=== PATIENT | male | born 1995 | race Caucasian/White ===

== ENCOUNTER → 2020-05-08 19:12 | Outpatient (ROUT) | payer OTHER, SELFPAY ==
[2020-05-08 19:23] LABS: Add Manual Diff / Slide Review NO; Basophils Absolute Auto 0 /uL (0-100); Basophils Percent Auto 0.7 % (0-2); Eosinophils Absolute Auto 200 /uL (0-450); Eosinophils Percent Auto 5.7 % (2-4); Hematocrit 44.1 % (41-53); Hemoglobin 15.5 g/dL (13.5-17.5); Lymphocytes Absolute Auto 1500 /uL (1100-4500); Lymphocytes Percent Auto 34.8 % (25-40); Mean Corpuscular HGB Conc 35.2 % (30-36); Mean Corpuscular Hemoglobin 32.5 PG (26-34); Mean Corpuscular Volume 92.5 fL (80-100); Monocytes Absolute Auto 400 /uL (0-900); Monocytes Percent Auto 8.3 % (3-14); Neutrophils Absolute Auto 2200 /uL (1500-7000); Neutrophils Percent Auto 50.5 % (50-75); Platelet Count 286 X10^3/uL (150-400); Red Blood Cell Count 4.77 X10^6/uL (4.5-5.9); Red Cell Distribution Width 11.8 % (11.6-14.8); White Blood Cell Count 4.3 X10^3/uL (4.5-11.0)
[2020-05-08 19:40] LABS: Alanine Aminotransferase 24 IU/L (<50); Albumin Globulin Ratio 1.5 (1.0-2.8); Alkaline Phosphatase 65 U/L (38-126); Aspartate Aminotransferase 31 IU/L (17-59); BUN Creatinine Ratio 13.3 (6-22); Bilirubin Total 0.9 mg/dL (0.2-1.3); Blood Urea Nitrogen 12 mg/dL (9-20); Calcium 10.2 mg/dL (8.4-10.2); Carbon Dioxide 25 mmol/L (22-32); Chloride 103 mmol/L (98-107); Estimated Glomerular Filt Rate > 60.0 mL/min (>60); Globulin 3.4 g/dL (1.7-4.1); Glucose 88 mg/dL (70-100); HEMOLYSIS 43 (0-50); Potassium 4.5 mmol/L (3.4-5.1); Sodium 137 mmol/L (137-145); Total Protein 8.4 g/dL (6.3-8.2)
[2020-05-08 20:09] LABS: TSH w/ Reflex to FT4 2.15 uIU/mL (0.47-4.68)
== END ==
PROVIDERS: Visit Provider Physician Assistant
DX: F41.9 Anxiety disorder, unspecified (principal); R00.2 Palpitations; R68.89 Other general symptoms and signs
CPT/HCPCS: 80053; 84443; 85025

== ENCOUNTER 2020-09-04 01:43 | Emergency (ER) | payer OTHER, SELFPAY ==
[2020-09-04 01:51] VITALS: BP 114/62; PULSE 67; RESP 17; TEMP 37; O2SAT 98; BMI 19.2
--- NOTE | 2020-09-04 01:52 | DI.RAD.S_ITS ---
PROCEDURE: XR CHEST 2V INDICATIONS: sharp stabbing chest pain TECHNIQUE: 2 views of the chest were acquired. COMPARISON: None. FINDINGS: Surgical changes and devices: None. Lungs and pleura: Lungs are clear. No pleural effusions or pneumothorax. Mediastinum: Mediastinal contours are normal. Heart size is normal. Bones and chest wall: No suspicious bony abnormalities. Soft tissues appear unremarkable. IMPRESSION: No acute disease. Dictated by: Mika Duvall M.D. on 09/04/2020 at 8:16 Approved by: Mika Duvall M.D. on 09/04/2020 at 8:17
--- NOTE | 2020-09-04 02:34 | ED_ITS ---
HPI - Chest Pain General Chief Complaint: Chest Pain Stated Complaint: hurts to breath Time Seen by Provider: 09/04/20 01:44 Source: patient Mode of arrival: Ambulatory Limitations: no limitations History of Present Illness HPI narrative: 25-year-old male smoker without chronic medical problems presents with a chief complaint of sharp and stabbing left anterior chest pain that wraps around his back. It is reproducible to palpation and deep breath. He denies any known injury or overuse. He has had no runny nose, sneezing, coughing. He denies any shortness of breath. Related Data Previous Rx's Medication Instructions Recorded ketorolac 10 mg PO Q6H PRN #14 tab 09/04/20 Allergies Allergy/AdvReac Type Severity Reaction Status Date / Time morphine Allergy Verified 09/04/20 01:51 Review of Systems Constitutional Constitutional: Denies chills, Denies fatigue, Denies fever(s), Denies frequent falls, Denies lethargy and Denies weakness Eyes Eyes: Denies change in vision, Denies eye discharge, Denies irritation and Denies loss of vision ENT Ears, Nose, Mouth, and Throat: Denies change in voice, Denies dizziness, Denies neck pain, Denies sore throat and Denies throat swelling Cardiovascular Cardiovascular: Reports chest pain, Denies irregular heart rhythm, Denies lightheadedness, Denies palpitations, Denies dyspnea, Denies dyspnea on exertion and Denies orthopnea Respiratory Respiratory: Denies cough, Reports pain on inspiration, Reports pain with cough, Denies dyspnea, Denies dyspnea on exertion and Denies wheezing Gastrointestinal Gastrointestinal: Denies abdominal pain, Denies change in bowel habits, Denies diarrhea, Denies nausea and Denies vomiting Musculoskeletal Musculoskeletal: Denies neck pain and Denies numbness Integumentary/Breasts Skin/Breast: Denies pruritus, Denies erythema, Denies rash and Denies wounds Neurologic Neurologic: Denies behavioral changes, Denies confusion, Denies dizziness, Denies frequent falls, Denies loss of vision, Denies numbness and Denies weakness Psychiatric Psychiatric: Denies anxiety, Denies behavioral changes, Denies confusion, Denies depression, Denies homicidal ideation and Denies suicidal ideation Endocrine Endocrine: Denies fatigue, Denies flushing and Denies palpitations Hematologic/Lymphatic Hematologic/Lymphatic: Denies easy bruising Allergic/Immunologic Allergic/Immunologic: Denies urticaria, Denies throat swelling and Denies wheezing Patient History Social History Smoking Status: Current every day smoker Smoking Status: Current every day smoker alcohol intake frequency: 0-2 drinks per day Substance Use Type: does not use Exam Narrative Exam Narrative: GENERAL: [25] year old patient appears stated age. Well- nourished, well-developed patient, in mild distress. Anxious HEAD: Atraumatic. Normocephalic. EYES: Pupils equal round and reactive. Extraocular motions intact. No scleral icterus. No injection or drainage. ENT: Nose without bleeding, purulent drainage. Throat without erythema, tonsillar hypertrophy or exudate. Airway patent. NECK: Trachea midline. Non tender CARDIOVASCULAR: Left anterior chest pain to palpation. Regular rate and rhythm without murmurs, gallops, or rubs. RESPIRATORY: Clear to auscultation. Breath sounds equal bilaterally. No wheezes, rales, or rhonchi. GASTROINTESTINAL: Abdomen soft, non-tender, nondistended. EXTREMITIES: No edema or joint tenderness. BACK: Nontender without deformity or crepitance. No flank tenderness. NEURO: AOx3. SKIN: No rash or erythema of visible areas Initial Vital Signs Initial Vital Signs: Vital Signs Temperature 98.6 F 09/04/20 01:51 Pulse Rate 67 09/04/20 01:51 Respiratory Rate 17 09/04/20 01:51 Blood Pressure 114/62 09/04/20 01:51 Pulse Oximetry 98 09/04/20 01:51 Course Orders Ordered: ED Orders 09/04/20 01:52 XR chest 2V Stat EKG-12 Lead Stat Discontinued Medications Ketorolac Tromethamine (Ketorolac 60 Mg/2 Ml Vial) 60 mg IM NOW ONE Stop: 09/04/20 02:35 Last Admin: 09/04/20 03:05 Dose: 60 mg Documented by: RENÉ Vital Signs Vital signs: Vital Signs - 8 hr 09/04/20 01:51 09/04/20 03:25 Temperature 98.6 F Pulse Rate 67 64 Respiratory Rate 17 18 Blood Pressure 114/62 120/66 Pulse Oximetry 98 99 MDM - Chest Pain Imaging Data Chest x-ray: Attestation: I personally reviewed and interpreted this imaging study as follows: My Impression: NAP ECG Data Attestation: I personally reviewed and interpreted this ECG as follows: Interpretation: Normal sinus rhythm, no sign of ectopy, no ST segmental elevation or depression. No T-wave inversions or Discharge Plan Departure Patient Disposition: Home Clinical Impression: Atypical chest pain Instructions: DI for Atypical Chest Pain Activity Restrictions/Additional Instructions: *You have been diagnosed with [chest wall pain, most likely musculoskeletal] *What to do: *Take medications as directed *Follow up with your primary care provider in 2-3 days, call for an appointment. Let them know you were seen in the Emergency Department and that we ask that you be seen in follow up *Return to ER if you should have any new, worsening or concerning symptoms Prescriptions: New ketorolac 10 mg tablet 10 mg PO Q6H PRN (Reason: pain) Qty: 14 RF: 0
[2020-09-04] MEDS: KETOROLAC 60 MG/2 ML VIAL IM (03:05)
[2020-09-04 03:25] VITALS: BP 120/66; PULSE 64; RESP 18; O2SAT 99
== END 2020-09-04 03:25 | disposition home or self-care (01) ==
PROVIDERS: Emergency Provider Emergency Medicine
DX: R07.89 Other chest pain (principal)
CPT/HCPCS: 71046; 93005; 96372; 99281; 99284; J1885

== ENCOUNTER 2021-03-07 03:05 | Emergency (ER) | payer OTHER, SELFPAY ==
--- NOTE | 2021-03-07 03:11 | ED.GENADULT ---
HPI - General Adult General Chief complaint: Nausea/Vomiting/Diarrhea Stated complaint: Throwing up blood after drinking alcohol Time Seen by Provider: 03/07/21 03:06 History of Present Illness HPI narrative: Patient is a 25-year-old male he does admit to drinking alcohol on a daily basis. He states that yesterday he was fired from his job and trach yesterday afternoon. He states that he then went and slept for a while and when he woke up he had a headache. He thinks that he did drink more yesterday afternoon than what he normally does. He then proceeded to throw up 3 times. The 1st 2 were bile and alcohol in the 3rd episode of emesis had a maroon tinge to it. He denies any chest pain. No shortness of breath. No abdominal pain. He states that his nausea is still slightly there but is much better. He did not take his anxiety medication yesterday because he knew that he was going to drink and did not want to combine the 2. He then looked up his symptoms on the Internet and became very anxious decided to come in for evaluation. Related Data Previous Rx's Medication Instructions Recorded ketorolac 10 mg tablet 10 mg PO Q6H PRN #14 tab 09/04/20 Allergies Allergy/AdvReac Type Severity Reaction Status Date / Time morphine Allergy Verified 09/04/20 01:51 Review of Systems Constitutional Constitutional: Denies fever(s) Cardiovascular Cardiovascular: Reports system reviewed and no additional complaints, except as documented Respiratory Respiratory: Reports system reviewed and no additional complaints, except as documented Gastrointestinal Gastrointestinal: Reports as per HPI Musculoskeletal Musculoskeletal: Reports system reviewed and no additional complaints, except as documented Integumentary/Breasts Skin/Breast: Reports system reviewed and no additional complaints, except as documented Hematologic/Lymphatic On Anticoagulants: No Patient History Medical History Anxiety Social History Smoking Status: Current every day smoker Smoking Status: Current every day smoker alcohol intake frequency: 0-2 drinks per day Substance Use Type: does not use Exam Initial Vital Signs Initial Vital Signs: Vital Signs Temperature 98 F 03/07/21 03:13 Pulse Rate 100 H 03/07/21 03:13 Respiratory Rate 15 03/07/21 03:13 Blood Pressure 134/94 H 03/07/21 03:13 Pulse Oximetry 100 03/07/21 03:13 Const General: cooperative and healthy appearing PEARL Head: normal to inspection and normocephalic Resp Effort & Inspection: normal respiratory effort Auscultation: clear to auscultation bilaterally Cardio Rate: regular rate Rhythm: regular rhythm GI Inspection: normal to inspection Palpation: soft Skin General: no rashes or lesions noted Neuro General: patient alert and patient awake Extrem General: normal to inspection Psych Appearance: grossly normal and well kempt Course Orders Ordered: Discontinued Medications Ondansetron HCl (Ondansetron 4 Mg Odt Prepack) 1 bottle MISC SEEINSTR ONE Stop: 03/07/21 03:20 Vital Signs Vital signs: Vital Signs - 8 hr 03/07/21 03:13 Temperature 98 F Pulse Rate 100 H Respiratory Rate 15 Blood Pressure 134/94 H Pulse Oximetry 100 Medical Decision Making MDM Narrative Medical decision making narrative: I have very low suspicion for an acute GI bleed given his presentation. I also have low suspicion for pulmonary embolism. I do suspect that this is either a alcoholic gastritis or Klaudia-Franklin tear or both. Did discuss his alcohol use and he was informed that he should try to cut back on his alcohol. We did discuss the use of anti reflux/stomach ulcer medications. Will send home with a prescription for Zofran. He was given return precautions and follow-up instructions. He expressed understanding and agreement. Discharge Plan Departure Patient Disposition: Home Clinical Impression: Acute vomiting Instructions: DI for Vomiting -- Adult Activity Restrictions/Additional Instructions: I recommend that you consider cutting back on the amount of alcohol that you are drinking as this very well could be adding to the issues that brought you into the emergency department. Also recommend that you consider purchasing a medicine called famotidine/Pepcid. This medicine can be purchased [id number] any drug store or grocery store. They recommend that you take it on a daily basis for the next 7 days and then as needed afterwards. Return to the emergency department for any new or worsening symptoms Prescriptions: No Action ketorolac 10 mg tablet 10 mg PO Q6H PRN (Reason: pain) Qty: 14 RF: 0
[2021-03-07 03:13] VITALS: BP 134/94; PULSE 100; RESP 15; TEMP 36.6; O2SAT 100; BMI 20.5
[2021-03-07] MEDS: ONDANSETRON 4 MG ODT PREPACK 1 BOTTLE MISC (03:24)
== END 2021-03-07 03:35 | disposition home or self-care (01) ==
PROVIDERS: Emergency Provider Emergency Medicine
DX: R11.10 Vomiting, unspecified (principal); F10.10 Alcohol abuse, uncomplicated
CPT/HCPCS: 99281; 99282

== ENCOUNTER 2021-04-23 23:57 | Emergency (ER) | payer SELFPAY ==
[2021-04-24] VITALS (9 sets, daily range): BP systolic 117–136; BP diastolic 73–88; PULSE 81–116; RESP 14–28; TEMP 37.1; O2SAT 94–98; BMI 19.9
--- NOTE | 2021-04-24 00:34 | ED_ITS ---
HPI - Nausea/Vomiting/Diarrhea General Chief complaint: GI Bleed Stated complaint: cough blood,bruise on stomach,alcohol,depression Time Seen by Provider: 04/24/21 00:00 History of Present Illness HPI Narrative: 25-year-old male smoker and heavy daily drinker presents with a chief complaint of 1 episode of vomiting yesterday, and a 2nd episode of vomiting today with bright red blood. He says yesterday there may have been some coffee-ground type appearance. He states that he drinks at least 12 shots and 12 beers daily. He has been alcohol rehab previously and states that he has had alcohol withdrawal symptoms but never seizures. He is not dizzy nor weak or lightheaded. Denies any pain. He denies the use of blood thinners. He denies any history of the same. Related Data Previous Rx's Medication Instructions Recorded ketorolac 10 mg tablet 10 mg PO Q6H PRN #14 tab 09/04/20 pantoprazole 40 mg tablet,delayed 40 mg PO DAILY #30 tab 04/24/21 release (Protonix) Allergies Allergy/AdvReac Type Severity Reaction Status Date / Time morphine Allergy Verified 09/04/20 01:51 Review of Systems Review of Systems Narrative: GENERAL: Denies chills, fatigue, malaise, fever, sweats. HEENT: Denies sinus pain, ear pain, sore throat, difficulty swallowing, dizziness. RESPIRATORY: Denies dyspnea, cough, wheezing, hemoptysis, sputum. CARDIOVASCULAR: Denies chest pain, palpitations, orthopnea, edema, GASTROINTESTINAL: See HPI : Denies dysuria, frequency, incontinence, hematuria, urinary retention. MUSCULOSKELETAL: denies weakness, joint pain, or bony pain SKIN: Denies rash, skin lesions, or other NEUROLOGIC: Denies weakness, headache, numbness, change in speech, confusion, seizures, incoordination. PSYCHIATRIC: No concerning psychosocial issues. 12 point review of systems is negative except for those stated above Patient History Medical History Anxiety Social History Smoking Status: Current every day smoker Smoking Status: Current every day smoker alcohol intake frequency: 3 or more drinks per day Substance Use Type: does not use Exam Narrative Exam Narrative: GENERAL: [25] year old patient appears stated age. Well- developed patient, in mild distress. A bit anxious HEAD: Atraumatic. Normocephalic. EYES: Pupils equal round and reactive. Extraocular motions intact. No scleral icterus. No injection or drainage. ENT: Nose without bleeding, purulent drainage. Throat without erythema, tonsillar hypertrophy or exudate. Airway patent. NECK: Trachea midline. Non tender CARDIOVASCULAR: Tachycardic but regular rhythm without murmurs, gallops, or rubs. RESPIRATORY: Clear to auscultation. Breath sounds equal bilaterally. No wheezes, rales, or rhonchi. GASTROINTESTINAL: Abdomen soft, non-tender, nondistended. EXTREMITIES: No edema or joint tenderness. BACK: Nontender without deformity or crepitance. No flank tenderness. NEURO: AOx3. SKIN: No rash or erythema of visible areas Initial Vital Signs Initial Vital Signs: Vital Signs Temperature 98.7 F 04/24/21 00:41 Pulse Rate 116 H 04/24/21 00:41 Respiratory Rate 24 04/24/21 00:41 Blood Pressure 136/88 04/24/21 00:41 Pulse Oximetry 98 04/24/21 00:41 Course Orders Ordered: ED Orders 04/24/21 00:23 COVID19 - ADMIT ([employer] swab/PCR) Stat 04/24/21 00:40 Complete Blood Count AUTO DIFF Stat Comprehensive Metabolic Panel Stat Ethanol (ETOH) Stat Lactate (Lactic Acid) Stat Lipase Stat Prothrombin Time INR Stat 04/24/21 03:13 Urine Microscopic Stat 04/24/21 03:39 Urine Drug Screen, Rapid Stat Discontinued Medications Lorazepam (Lorazepam 2 Mg/Ml Inj) 1 mg IV NOW ONE Stop: 04/24/21 01:27 Last Admin: 04/24/21 01:40 Dose: 1 mg Documented by: CITLALI Ondansetron HCl (Ondansetron 4 Mg/2 Ml Inj) 4 mg IV NOW ONE Stop: 04/24/21 00:23 Last Admin: 04/24/21 01:12 Dose: 4 mg Documented by: CITLALI Pantoprazole Sodium (Pantoprazole 40 Mg Vial) 80 mg IV NOW ONE Stop: 04/24/21 00:23 Last Admin: 04/24/21 01:11 Dose: 80 mg Documented by: CITLALI Vital Signs Vital signs: Vital Signs - 8 hr 04/24/21 00:41 04/24/21 00:52 04/24/21 01:00 Temperature 98.7 F Pulse Rate 116 H 100 H 102 H Respiratory Rate 24 24 27 H Blood Pressure 136/88 117/80 Pulse Oximetry 98 97 96 04/24/21 01:30 04/24/21 02:00 04/24/21 02:30 Temperature Pulse Rate 94 H 92 H 88 Respiratory Rate 27 H 23 14 Blood Pressure 124/73 131/86 132/83 Pulse Oximetry 96 98 94 04/24/21 03:04 04/24/21 03:30 04/24/21 04:00 Temperature Pulse Rate 85 86 81 Respiratory Rate 21 28 H Blood Pressure 133/80 Pulse Oximetry 98 94 96 MDM - Nausea/Vomiting/Diarrhea Lab Data Result diagrams: 04/24/21 00:40 04/24/21 00:40 Labs: Lab Results 04/24/21 04/24/21 04/24/21 Range/Units 00:40 00:40 00:40 WBC 6.3 (4.5-11.0) X10^3/uL RBC 4.74 (4.5-5.9) X10^6/uL Hgb 15.5 (13.5-17.5) g/dL Hct 45.4 (41-53) % MCV 95.8 (80-100) fL MCH 32.8 (26-34) PG MCHC 34.3 (30-36) % RDW 12.4 (11.6-14.8) % Plt Count 338 (150-400) X10^3/uL Neut % (Auto) 47.7 L (50-75) % Lymph % (Auto) 40.5 H (25-40) % [place] % (Auto) 7.4 (3-14) % Eos % (Auto) 3.4 (2-4) % Baso % (Auto) 1.0 (0-2) % Neut # (Auto) 3000 (8347-6874) /uL Lymph # (Auto) 2600 (8446-9873) /uL [place] # (Auto) 500 (0-900) /uL Eos # (Auto) 200 (0-450) /uL Baso # (Auto) 100 (0-100) /uL PT 10.9 (10.1-12.7) SECONDS INR 1.0 (0.9-1.3) Sodium (137-145) mmol/L Potassium (3.4-5.1) mmol/L Chloride (98-107) mmol/L Carbon Dioxide (22-32) mmol/L BUN (9-20) mg/dL Creatinine (0.66-1.25) mg/dL Estimated GFR (>60) mL/min BUN/Creatinine Ratio (6-22) Glucose (70-100) mg/dL Lactate (0.7-2.1) mmol/L Calcium (8.4-10.2) mg/dL Total Bilirubin (0.2-1.3) mg/dL AST (17-59) IU/L ALT (<50) IU/L Alkaline Phosphatase (38-126) U/L Total Protein (6.3-8.2) g/dL Albumin (3.5-5.0) g/dL Globulin (1.7-4.1) g/dL Albumin/Globulin Ratio (1.0-2.8) Lipase (23-300) U/L Urine RBC (0-5/HPF) Urine WBC (0-5/HPF) Urine Bacteria (None) Ur Culture Indicated? Ethyl Alcohol 325 H ( - 10) mg/dL 04/24/21 04/24/21 04/24/21 Range/Units 00:40 00:40 03:13 WBC (4.5-11.0) X10^3/uL RBC (4.5-5.9) X10^6/uL Hgb (13.5-17.5) g/dL Hct (41-53) % MCV (80-100) fL MCH (26-34) PG MCHC (30-36) % RDW (11.6-14.8) % Plt Count (150-400) X10^3/uL Neut % (Auto) (50-75) % Lymph % (Auto) (25-40) % [place] % (Auto) (3-14) % Eos % (Auto) (2-4) % Baso % (Auto) (0-2) % Neut # (Auto) (9074-6509) /uL Lymph # (Auto) (1494-5936) /uL [place] # (Auto) (0-900) /uL Eos # (Auto) (0-450) /uL Baso # (Auto) (0-100) /uL PT (10.1-12.7) SECONDS INR (0.9-1.3) Sodium 144 (137-145) mmol/L Potassium 4.1 (3.4-5.1) mmol/L Chloride 106 (98-107) mmol/L Carbon Dioxide 24 (22-32) mmol/L BUN 12 (9-20) mg/dL Creatinine 0.96 (0.66-1.25) mg/dL Estimated GFR > 60.0 (>60) mL/min BUN/Creatinine Ratio 12.5 (6-22) Glucose 121 H (70-100) mg/dL Lactate 1.9 (0.7-2.1) mmol/L Calcium 9.3 (8.4-10.2) mg/dL Total Bilirubin 0.3 (0.2-1.3) mg/dL AST 45 (17-59) IU/L ALT 35 (<50) IU/L Alkaline Phosphatase 78 (38-126) U/L Total Protein 8.4 H (6.3-8.2) g/dL Albumin 4.9 (3.5-5.0) g/dL Globulin 3.5 (1.7-4.1) g/dL Albumin/Globulin Ratio 1.4 (1.0-2.8) Lipase 135 (23-300) U/L Urine RBC 0-1/hpf (0-5/HPF) Urine WBC None seen (0-5/HPF) Urine Bacteria None seen (None) Ur Culture Indicated? Cult not indicated Ethyl Alcohol ( - 10) mg/dL Urine Dip Bedside Urine Glucose Negative Bedside Urine Bilirubin - Negative Bedside Urine Ketone - Negative Urine Specific [place] 1.010 Bedside Urine Occult Blood +/- Bedside Urine pH 7 Bedside Urine Protein - Negative Bedside Urine Urobilinogen - Negative Bedside Urine Nitrite - Negative Bedside Urine Leukocytes - Negative Esterase MDM Narrative Medical decision making narrative: Patient reports hematemesis earlier today. He has been observed for nearly 5 hours and had no ongoing episodes. His vital signs have stabilized, he feels significant improvement. He is clinically sober, speaking clearly without slurring and ambulating a steady gait. He is demonstrating capacity to make his own decisions and understands the need to establish with local doctors. He understands that if he continues on this path of heavy drinking that it will make him significantly, chronically ill and will be, life-threatening problem. He understands that quitting without the assistance of a physician is also life-threatening. He has been given extensive return precautions and questions are answered to his apparent satisfaction Discharge Plan Departure Patient Disposition: Home Clinical Impression: Gastritis Qualifiers: Gastritis type: alcoholic Chronicity: acute Gastritis bleeding: with bleeding Qualified Code(s): K29.21 - Alcoholic gastritis with bleeding Instructions: Gastrointestinal Bleeding Activity Restrictions/Additional Instructions: *You have been diagnosed with [vomiting with blood, likely a consequence of chronic alcohol abuse and gastritis. Your vital signs are very reassuring and your labs are as well, however it is very important that you follow up closely with the doctors listed below] *What to do: *Please continue to take your regular medications as directed. [x ] New medication prescriptions sent to your pharmacy: [ [facility]] [ ] New medication written as a paper prescription [ ] No new medications given *Please follow up with your primary care provider in 2-3 days, call for an appointment. Let them know you were seen in the Emergency Department and that we ask that you be seen in follow up. We will electronically transmit a record of today's note if your PCP is in our system *If you do not have a primary care provider please contact the [facility] Resource line at [phone]. They will ask some questions about your medical history and help get you set up with a doctor in the community. *Return to Emergency Department if you should have any new, worsening or concerning symptoms, such as [fever greater than 101 F, shaking chills, worsening pain, persistent vomiting or other bothersome symptoms] Prescriptions: New pantoprazole [Protonix] 40 mg tablet,delayed release (DR/EC) 40 mg PO DAILY Qty: 30 RF: 0 No Action ketorolac 10 mg tablet 10 mg PO Q6H PRN (Reason: pain) Qty: 14 RF: 0 Referrals: [facility] [Outside] Larry Lindo MD [Physician] -
[2021-04-24 00:47] LABS: Add Manual Diff / Slide Review NO; Basophils Absolute Auto 100 /uL (0-100); Eosinophils Absolute Auto 200 /uL (0-450); Eosinophils Percent Auto 3.4 % (2-4); Hematocrit 45.4 % (41-53); Hemoglobin 15.5 g/dL (13.5-17.5); Lymphocytes Absolute Auto 2600 /uL (1100-4500); Lymphocytes Percent Auto 40.5 % (25-40); Mean Corpuscular HGB Conc 34.3 % (30-36); Mean Corpuscular Hemoglobin 32.8 PG (26-34); Mean Corpuscular Volume 95.8 fL (80-100); Monocytes Absolute Auto 500 /uL (0-900); Monocytes Percent Auto 7.4 % (3-14); Neutrophils Absolute Auto 3000 /uL (1500-7000); Neutrophils Percent Auto 47.7 % (50-75); Platelet Count 338 X10^3/uL (150-400); Red Blood Cell Count 4.74 X10^6/uL (4.5-5.9); Red Cell Distribution Width 12.4 % (11.6-14.8); White Blood Cell Count 6.3 X10^3/uL (4.5-11.0)
[2021-04-24 00:57] LABS: Alanine Aminotransferase 35 IU/L (<50); Albumin 4.9 g/dL (3.5-5.0); Albumin Globulin Ratio 1.4 (1.0-2.8); Alkaline Phosphatase 78 U/L (38-126); Aspartate Aminotransferase 45 IU/L (17-59); BUN Creatinine Ratio 12.5 (6-22); Bilirubin Total 0.3 mg/dL (0.2-1.3); Blood Urea Nitrogen 12 mg/dL (9-20); Calcium 9.3 mg/dL (8.4-10.2); Carbon Dioxide 24 mmol/L (22-32); Chloride 106 mmol/L (98-107); Estimated Glomerular Filt Rate > 60.0 mL/min (>60); Globulin 3.5 g/dL (1.7-4.1); Glucose 121 mg/dL (70-100); HEMOLYSIS < 15 (0-50); Lactate (Lactic Acid) 1.9 mmol/L (0.7-2.1); Lipase 135 U/L (23-300); Potassium 4.1 mmol/L (3.4-5.1); Sodium 144 mmol/L (137-145); Total Protein 8.4 g/dL (6.3-8.2)
[2021-04-24 01:04] LABS: Prothrombin Time 10.9 SECONDS (10.1-12.7)
[2021-04-24] MEDS: PANTOPRAZOLE 40 MG VIAL 80 MG IV (01:11)
[2021-04-24] MEDS: ONDANSETRON 4 MG/2 ML INJ IV (01:12)
[2021-04-24 01:22] LABS: Ethanol (ETOH) 325 mg/dL
[2021-04-24] MEDS: LORazepam 2 MG/ML INJ 1 MG IV (01:40)
[2021-04-24 03:31] LABS: Bacteria Urine None Seen; WBC Urine None Seen (0-5/HPF)
[2021-04-24 03:37] LABS: Culture Indicated Urine Cult Not Indicated; RBC Urine 0-1/HPF (0-5/HPF)
== END 2021-04-24 04:45 | disposition home or self-care (01) ==
PROVIDERS: Emergency Provider Emergency Medicine
DX: K29.21 Alcoholic gastritis with bleeding (principal)
CPT/HCPCS: 36415; 80053; 80320; 81003; 81015; 83605; 83690; 85025; 85610; 96374; 96375; 99284; C9113; J2060; J2405

== ENCOUNTER 2021-04-24 17:04 | Inpatient (IN) | payer SELFPAY ==
[2021-04-24] VITALS (10 sets, daily range): BP systolic 121–145; BP diastolic 72–97; PULSE 77–109; RESP 16–26; TEMP 36.6–36.9; O2SAT 97–98; BMI 19.9
--- NOTE | 2021-04-24 17:29 | ED_ITS ---
HPI - GI Bleed <Justice Chacon DO - Last Filed: 04/24/21 23:26> General Chief complaint: GI Bleed Stated complaint: THROWING UP RED BLOOD/BLACK BLACK UROGEN Time Seen by Provider: 04/24/21 17:29 History of Present Illness HPI Narrative: 25-year-old male smoker and heavy daily drinker presents with a chief complaint of an episode of vomiting coffee-ground emesis and multiple episodes of dark and tarry stools. He was seen and evaluated yesterday after having 1-2 episodes of bright red vomit. He was observed for nearly 5 hours, vital signs were stable H&H was stable he was given a PPI and sent home with return precautions. Over the past 24 hours he has developed the symptoms stated above in addition to feeling weak, shaky, agitated and irritable. He has not had a drink and quite a few hours and generally feels unwell. He is a heavy drinker and has gone through withdrawals before but has never had seizures. He denies any history of cirrhosis, upper GI bleed or known varices. Related Data Home Medications Medication Instructions Recorded Confirmed paroxetine HCl 30 mg tablet 30 mg PO DAILY 04/24/21 04/24/21 Previous Rx's Medication Instructions Recorded pantoprazole 40 mg tablet,delayed 40 mg PO 0700 #30 tab 04/26/21 release Allergies Allergy/AdvReac Type Severity Reaction Status Date / Time morphine Allergy Verified 09/04/20 01:51 <Roberta Bedolla MD - Last Filed: 04/27/21 03:17> General Source: patient Mode of arrival: Ambulatory Review of Systems <Justice Chacon DO - Last Filed: 04/24/21 23:26> Review of Systems Narrative: GENERAL: See HPI HEENT: Denies sinus pain, ear pain, sore throat, difficulty swallowing, dizziness. RESPIRATORY: Denies dyspnea, cough, wheezing, hemoptysis, sputum. CARDIOVASCULAR: Denies chest pain, palpitations, orthopnea, edema, GASTROINTESTINAL: See HP : Denies dysuria, frequency, incontinence, hematuria, urinary retention. MUSCULOSKELETAL: denies weakness, joint pain, or bony pain SKIN: Denies rash, skin lesions, or other NEUROLOGIC: Denies weakness, headache, numbness, change in speech, confusion, seizures, incoordination. PSYCHIATRIC: See HPI 12 point review of systems is negative except for those stated above Patient History <Justice Chacon DO - Last Filed: 04/24/21 23:26> Medical History (Updated 04/25/21 @ 04:03 by CASEY Lester-PETEY) Alcohol abuse Anxiety Depression with anxiety History of fracture of leg Surgical History (Updated 04/25/21 @ 04:03 by SALINA Lester) History of surgery on extremity Family History (Updated 04/25/21 @ 04:04 by SALINA Lester) Other Adopted Social History household members: friend(s) Smoking Status: Current every day smoker alcohol intake: current <Roberta Bedolla MD - Last Filed: 04/27/21 03:17> Smoking Status: Current every day smoker tobacco type: cigarettes alcohol intake frequency: 3 or more drinks per day Alcohol type: beer and hard liquor Substance Use Type: marijuana Exam <Justice Cahcon DO - Last Filed: 04/24/21 23:26> Narrative Exam Narrative: GENERAL: 25 [] year old patient appears stated age. Well- developed patient, in moderate distress, shaky, diaphoretic, agitated HEAD: Atraumatic. Normocephalic. EYES: Pupils equal round and reactive. Extraocular motions intact. No scleral icterus. No injection or drainage. ENT: Nose without bleeding, purulent drainage. Throat without erythema, tonsillar hypertrophy or exudate. Airway patent. NECK: Trachea midline. Non tender CARDIOVASCULAR: Tachycardic but regular rhythm without murmurs, gallops, or rubs. RESPIRATORY: Clear to auscultation. Breath sounds equal bilaterally. No wheezes, rales, or rhonchi. GASTROINTESTINAL: Abdomen soft, non-tender, nondistended. EXTREMITIES: No edema or joint tenderness. BACK: Nontender without deformity or crepitance. No flank tenderness. NEURO: AOx3. SKIN: No rash or erythema of visible areas Initial Vital Signs Initial Vital Signs: Vital Signs Temperature 98 F 04/24/21 17:20 Pulse Rate 101 H 04/24/21 17:20 Respiratory Rate 26 H 04/24/21 17:20 Blood Pressure 145/97 H 04/24/21 17:20 Pulse Oximetry 98 04/24/21 17:20 <Roberta Bedolla MD - Last Filed: 04/27/21 03:17> Initial Vital Signs Initial Vital Signs: Vital Signs Temperature 98 F 04/24/21 17:20 Pulse Rate 101 H 04/24/21 17:20 Respiratory Rate 26 H 04/24/21 17:20 Blood Pressure 145/97 H 04/24/21 17:20 Pulse Oximetry 98 04/24/21 17:20 Course <Justice Chacon DO - Last Filed: 04/24/21 23:26> Course Course Narrative: Tachycardia and tachypnea thought to be related to alcohol withdrawal as opposed to underlying sepsis. Additional Information: CIWA-Ar for Alcohol Withdrawal from [employer] [facility] [employer] on 04/24/2021 All calculations should be rechecked by clinician prior to use RESULT SUMMARY: 18 points Patients with scores ?9 may require medication for withdrawal. INPUTS: Nausea/vomiting ?> 4 = Intermittent nausea with dry heaves Tremor ?> 4 = Moderate, with patient's arms extended Paroxysmal sweats ?> 2 = (More severe symptoms) Anxiety ?> 5 = (More severe symptoms) Agitation ?> 3 = (More severe symptoms) Tactile disturbances ?> 0 = None Auditory disturbances ?> 0 = Not present Visual disturbances ?> 0 = Not present Headache/fullness in head ?> 0 = Not Present Orientation/clouding of sensorium ?> 0 = Oriented, can do serial additions Orders Ordered: Discontinued Medications Acetaminophen (Acetaminophen 325 Mg Tablet) 650 mg PO Q6HR PRN PRN Reason: Fever/Mild Pain (1-3) Last Admin: 04/25/21 18:50 Dose: 650 mg Documented by: TALAT Folic Acid (Folic Acid 1 Mg Tablet) 1 mg PO DAILY MODE Last Admin: 04/26/21 09:13 Dose: 1 mg Documented by: Admin: 04/25/21 10:32 Dose: 1 mg Documented by: LILA Sodium Chloride (Normal Saline 0.9%) 1,000 mls @ 1,000 mls/hr IV BOLUS ONE Stop: 04/24/21 18:38 Last Infusion: 04/24/21 18:55 Dose: 0 mls/hr Documented by: Admin: 04/24/21 17:53 Dose: 1,000 mls/hr Documented by: SIMON Lactated Ringer's (Lactated Ringers) 1,000 mls @ 100 mls/hr IV CONT MODE Last Infusion: 04/25/21 06:29 Dose: 100 mls/hr Documented by: Admin: 04/25/21 06:29 Dose: 100 mls/hr Documented by: Infusion: 04/25/21 06:12 Dose: 100 mls/hr Documented by: Admin: 04/24/21 20:12 Dose: 100 mls/hr Documented by: TALAT Ketorolac Tromethamine (Ketorolac 30 Mg/Ml Vial) 30 mg IV Q6HR PRN PRN Reason: Pain, Severe (7-10) Stop: 04/29/21 19:28 Lorazepam (Lorazepam 2 Mg/Ml Inj) 2 mg IV NOW ONE Stop: 04/24/21 17:40 Last Admin: 04/24/21 17:53 Dose: 2 mg Documented by: SIMON Lorazepam (Lorazepam 2 Mg/Ml Inj) 0 mg IV CIWAPRN PRN; Protocol PRN Reason: Alcohol Withdrawal Last Admin: 04/25/21 19:07 Dose: 1 mg Documented by: Admin: 04/25/21 15:34 Dose: 1 mg Documented by: Admin: 04/25/21 05:09 Dose: 1 mg Documented by: Admin: 04/24/21 21:17 Dose: 1 mg Documented by: TALAT Lorazepam (Lorazepam 2 Mg/Ml Inj) 1 mg IV NOW ONE Stop: 04/24/21 20:53 Last Admin: 04/24/21 20:53 Dose: 1 mg Documented by: TALAT Multivitamins (Multivitamin 1 Tablet) 1 tab PO DAILY [facility] Last Admin: 04/26/21 09:13 Dose: 1 tab Documented by: Admin: 04/25/21 10:32 Dose: 1 tab Documented by: LILA Naloxone HCl (Naloxone 0.4 Mg/Ml Vial) 0.2 mg IV Q2MIN PRN PRN Reason: Opiate Reversal Nicotine (Nicotine 21 Mg Patch) 21 mg TOP DAILY [facility] Last Admin: 04/26/21 09:13 Dose: 21 mg Documented by: Admin: 04/25/21 08:23 Dose: 21 mg Documented by: Admin: 04/24/21 22:45 Dose: 21 mg Documented by: LIZA Non-Formulary Medication (Paroxetine Hcl) 30 mg PO DAILY [facility] Last Admin: 04/24/21 22:57 Dose: Not Given Documented by: SALVADOR Stored In Pharmacy 0 each PO PRN PRN PRN Reason: . Ondansetron HCl (Ondansetron 4 Mg/2 Ml Inj) 4 mg IV Q8HR PRN PRN Reason: Nausea And Vomiting Last Admin: 04/24/21 21:24 Dose: 4 mg Documented by: TALAT Pantoprazole Sodium (Pantoprazole 40 Mg Vial) 80 mg IV NOW ONE Stop: 04/24/21 17:40 Last Admin: 04/24/21 17:54 Dose: 80 mg Documented by: SIMON Pantoprazole Sodium (Pantoprazole Dr 40 Mg Tablet) 40 mg PO 0700 [facility] Last Admin: 04/26/21 06:33 Dose: 40 mg Documented by: Admin: 04/25/21 10:35 Dose: 40 mg Documented by: LILA Paroxetine HCl (Paroxetine 20 Mg Tablet) 30 mg PO DAILY [facility] Last Admin: 04/26/21 09:01 Dose: 30 mg Documented by: Admin: 04/25/21 08:22 Dose: 30 mg Documented by: LILA Paroxetine HCl (Paroxetine 20 Mg Tablet) 30 mg PO NOW ONE Stop: 04/24/21 22:21 Last Admin: 04/24/21 22:45 Dose: 30 mg Documented by: LIZA Sodium Chloride (Sodium Chloride 0.9% Flush) 10 ml IV PRN PRN PRN Reason: Flush Sodium Chloride (Sodium Chloride 0.9% Flush) 10 ml IV BID [facility] Last Admin: 04/26/21 09:27 Dose: Not Given Documented by: Admin: 04/25/21 19:07 Dose: 10 ml Documented by: Admin: 04/25/21 08:29 Dose: Not Given Documented by: LILA Thiamine HCl (Thiamine 100 Mg Tablet) 100 mg PO DAILY [facility] Stop: 05/01/21 09:01 Last Admin: 04/26/21 09:13 Dose: 100 mg Documented by: Admin: 04/25/21 10:32 Dose: 100 mg Documented by: LILA Reevaluation(s) Reevaluation #1: Patient feeling much better after 2 mg of Ativan Consultations Consultation #1: Discussed with hospitalist, Dr. Milian happy to accept Consultation #2: discussed with Dr. Juarez regarding GI bleed. Happy to consult if/when needed Vital Signs Vital signs: Vital Signs - 8 hr 04/24/21 17:20 04/24/21 17:39 04/24/21 18:00 Temperature 98 F Pulse Rate 101 H 109 H 99 H Respiratory Rate 26 H 23 21 Blood Pressure 145/97 H Pulse Oximetry 98 97 98 04/24/21 18:30 Temperature Pulse Rate 94 H Respiratory Rate 16 Blood Pressure Pulse Oximetry 98 <Roberta Bedolla MD - Last Filed: 04/27/21 03:17> Orders Ordered: Discontinued Medications Acetaminophen (Acetaminophen 325 Mg Tablet) 650 mg PO Q6HR PRN PRN Reason: Fever/Mild Pain (1-3) Last Admin: 04/25/21 18:50 Dose: 650 mg Documented by: TALAT Folic Acid (Folic Acid 1 Mg Tablet) 1 mg PO DAILY [facility] Last Admin: 04/26/21 09:13 Dose: 1 mg Documented by: Admin: 04/25/21 10:32 Dose: 1 mg Documented by: LILA Sodium Chloride (Normal Saline 0.9%) 1,000 mls @ 1,000 mls/hr IV BOLUS ONE Stop: 04/24/21 18:38 Last Infusion: 04/24/21 18:55 Dose: 0 mls/hr Documented by: ELIGIOYLHUDSON Admin: 04/24/21 17:53 Dose: 1,000 mls/hr Documented by: SIMON Lactated Ringer's (Lactated Ringers) 1,000 mls @ 100 mls/hr IV CONT [facility] Last Infusion: 04/25/21 06:29 Dose: 100 mls/hr Documented by: Admin: 04/25/21 06:29 Dose: 100 mls/hr Documented by: Infusion: 04/25/21 06:12 Dose: 100 mls/hr Documented by: Admin: 04/24/21 20:12 Dose: 100 mls/hr Documented by: TALAT Ketorolac Tromethamine (Ketorolac 30 Mg/Ml Vial) 30 mg IV Q6HR PRN PRN Reason: Pain, Severe (7-10) Stop: 04/29/21 19:28 Lorazepam (Lorazepam 2 Mg/Ml Inj) 2 mg IV NOW ONE Stop: 04/24/21 17:40 Last Admin: 04/24/21 17:53 Dose: 2 mg Documented by: SIMON Lorazepam (Lorazepam 2 Mg/Ml Inj) 0 mg IV CIWAPRN PRN; Protocol PRN Reason: Alcohol Withdrawal Last Admin: 04/25/21 19:07 Dose: 1 mg Documented by: Admin: 04/25/21 15:34 Dose: 1 mg Documented by: Admin: 04/25/21 05:09 Dose: 1 mg Documented by: Admin: 04/24/21 21:17 Dose: 1 mg Documented by: TALAT Lorazepam (Lorazepam 2 Mg/Ml Inj) 1 mg IV NOW ONE Stop: 04/24/21 20:53 Last Admin: 04/24/21 20:53 Dose: 1 mg Documented by: TALAT Multivitamins (Multivitamin 1 Tablet) 1 tab PO DAILY [facility] Last Admin: 04/26/21 09:13 Dose: 1 tab Documented by: Admin: 04/25/21 10:32 Dose: 1 tab Documented by: LILA Naloxone HCl (Naloxone 0.4 Mg/Ml Vial) 0.2 mg IV Q2MIN PRN PRN Reason: Opiate Reversal Nicotine (Nicotine 21 Mg Patch) 21 mg TOP DAILY [facility] Last Admin: 04/26/21 09:13 Dose: 21 mg Documented by: Admin: 04/25/21 08:23 Dose: 21 mg Documented by: Admin: 04/24/21 22:45 Dose: 21 mg Documented by: LIZA Non-Formulary Medication (Paroxetine Hcl) 30 mg PO DAILY [facility] Last Admin: 04/24/21 22:57 Dose: Not Given Documented by: SALVADOR Stored In Pharmacy 0 each PO PRN PRN PRN Reason: . Ondansetron HCl (Ondansetron 4 Mg/2 Ml Inj) 4 mg IV Q8HR PRN PRN Reason: Nausea And Vomiting Last Admin: 04/24/21 21:24 Dose: 4 mg Documented by: TALAT Pantoprazole Sodium (Pantoprazole 40 Mg Vial) 80 mg IV NOW ONE Stop: 04/24/21 17:40 Last Admin: 04/24/21 17:54 Dose: 80 mg Documented by: SIMON Pantoprazole Sodium (Pantoprazole Dr 40 Mg Tablet) 40 mg PO 0700 [facility] Last Admin: 04/26/21 06:33 Dose: 40 mg Documented by: Admin: 04/25/21 10:35 Dose: 40 mg Documented by: LILA Paroxetine HCl (Paroxetine 20 Mg Tablet) 30 mg PO DAILY [facility] Last Admin: 04/26/21 09:01 Dose: 30 mg Documented by: Admin: 04/25/21 08:22 Dose: 30 mg Documented by: LILA Paroxetine HCl (Paroxetine 20 Mg Tablet) 30 mg PO NOW ONE Stop: 04/24/21 22:21 Last Admin: 04/24/21 22:45 Dose: 30 mg Documented by: LIZA Sodium Chloride (Sodium Chloride 0.9% Flush) 10 ml IV PRN PRN PRN Reason: Flush Sodium Chloride (Sodium Chloride 0.9% Flush) 10 ml IV BID [facility] Last Admin: 04/26/21 09:27 Dose: Not Given Documented by: Admin: 04/25/21 19:07 Dose: 10 ml Documented by: Admin: 04/25/21 08:29 Dose: Not Given Documented by: LILA Thiamine HCl (Thiamine 100 Mg Tablet) 100 mg PO DAILY [facility] Stop: 05/01/21 09:01 Last Admin: 04/26/21 09:13 Dose: 100 mg Documented by: Admin: 04/25/21 10:32 Dose: 100 mg Documented by: LILA Vital Signs Vital signs: Vital Signs - 8 hr 04/24/21 17:20 04/24/21 17:39 04/24/21 18:00 Temperature 98 F Pulse Rate 101 H 109 H 99 H Respiratory Rate 26 H 23 21 Blood Pressure 145/97 H Pulse Oximetry 98 97 98 04/24/21 18:30 Temperature Pulse Rate 94 H Respiratory Rate 16 Blood Pressure Pulse Oximetry 98 MDM - GI Bleed <Justice Chacon DO - Last Filed: 04/24/21 23:26> Lab Data Result diagrams: 04/26/21 04:55 04/26/21 04:55 Labs: Lab Results 04/24/21 04/24/21 04/24/21 Range/Units 17:46 17:46 17:46 WBC 9.3 (4.5-11.0) X10^3/uL RBC 4.55 (4.5-5.9) X10^6/uL Hgb 15.0 (13.5-17.5) g/dL Hct 43.3 (41-53) % MCV 95.2 (80-100) fL MCH 33.0 (26-34) PG MCHC 34.7 (30-36) % RDW 12.7 (11.6-14.8) % Plt Count 336 (150-400) X10^3/uL Neut % (Auto) 71.6 D (50-75) % Lymph % (Auto) 19.4 L D (25-40) % [place] % (Auto) 7.7 (3-14) % Eos % (Auto) 0.9 L (2-4) % Baso % (Auto) 0.4 (0-2) % Neut # (Auto) 6700 (7762-5556) /uL Lymph # (Auto) 1800 (2042-4617) /uL [place] # (Auto) 700 (0-900) /uL Eos # (Auto) 100 (0-450) /uL Baso # (Auto) 0 (0-100) /uL Sodium 136 L (137-145) mmol/L Potassium 3.9 (3.4-5.1) mmol/L Chloride 101 (98-107) mmol/L Carbon Dioxide 23 (22-32) mmol/L BUN 15 (9-20) mg/dL Creatinine 0.65 L (0.66-1.25) mg/dL Estimated GFR > 60.0 (>60) mL/min BUN/Creatinine Ratio 23.1 H (6-22) Glucose 100 (70-100) mg/dL Calcium 9.7 (8.4-10.2) mg/dL Magnesium (1.6-2.3) mg/dL Total Bilirubin 0.6 (0.2-1.3) mg/dL AST 46 (17-59) IU/L ALT 33 (<50) IU/L Alkaline Phosphatase 71 (38-126) U/L Total Protein 8.2 (6.3-8.2) g/dL Albumin 5.0 (3.5-5.0) g/dL Globulin 3.2 (1.7-4.1) g/dL Albumin/Globulin Ratio 1.6 (1.0-2.8) Ethyl Alcohol ( - 10) mg/dL SARS-CoV-2 (PCR) (Negative) Blood Type O Positive Antibody Screen Negative 04/24/21 04/24/21 04/24/21 Range/Units 17:46 17:46 18:35 WBC (4.5-11.0) X10^3/uL RBC (4.5-5.9) X10^6/uL Hgb (13.5-17.5) g/dL Hct (41-53) % MCV (80-100) fL MCH (26-34) PG MCHC (30-36) % RDW (11.6-14.8) % Plt Count (150-400) X10^3/uL Neut % (Auto) (50-75) % Lymph % (Auto) (25-40) % [place] % (Auto) (3-14) % Eos % (Auto) (2-4) % Baso % (Auto) (0-2) % Neut # (Auto) (3542-2380) /uL Lymph # (Auto) (0726-1712) /uL [place] # (Auto) (0-900) /uL Eos # (Auto) (0-450) /uL Baso # (Auto) (0-100) /uL Sodium (137-145) mmol/L Potassium (3.4-5.1) mmol/L Chloride (98-107) mmol/L Carbon Dioxide (22-32) mmol/L BUN (9-20) mg/dL Creatinine (0.66-1.25) mg/dL Estimated GFR (>60) mL/min BUN/Creatinine Ratio (6-22) Glucose (70-100) mg/dL Calcium (8.4-10.2) mg/dL Magnesium 1.6 (1.6-2.3) mg/dL Total Bilirubin (0.2-1.3) mg/dL AST (17-59) IU/L ALT (<50) IU/L Alkaline Phosphatase (38-126) U/L Total Protein (6.3-8.2) g/dL Albumin (3.5-5.0) g/dL Globulin (1.7-4.1) g/dL Albumin/Globulin Ratio (1.0-2.8) Ethyl Alcohol 11 H ( - 10) mg/dL SARS-CoV-2 (PCR) Negative (Negative) Blood Type Antibody Screen <Roberta Bedolla MD - Last Filed: 04/27/21 03:17> Lab Data Labs: Lab Results 04/24/21 04/24/21 04/24/21 Range/Units 17:46 17:46 17:46 WBC 9.3 (4.5-11.0) X10^3/uL RBC 4.55 (4.5-5.9) X10^6/uL Hgb 15.0 (13.5-17.5) g/dL Hct 43.3 (41-53) % MCV 95.2 (80-100) fL MCH 33.0 (26-34) PG MCHC 34.7 (30-36) % RDW 12.7 (11.6-14.8) % Plt Count 336 (150-400) X10^3/uL Neut % (Auto) 71.6 D (50-75) % Lymph % (Auto) 19.4 L D (25-40) % [place] % (Auto) 7.7 (3-14) % Eos % (Auto) 0.9 L (2-4) % Baso % (Auto) 0.4 (0-2) % Neut # (Auto) 6700 (1320-2274) /uL Lymph # (Auto) 1800 (5735-4437) /uL [place] # (Auto) 700 (0-900) /uL Eos # (Auto) 100 (0-450) /uL Baso # (Auto) 0 (0-100) /uL Sodium 136 L (137-145) mmol/L Potassium 3.9 (3.4-5.1) mmol/L Chloride 101 (98-107) mmol/L Carbon Dioxide 23 (22-32) mmol/L BUN 15 (9-20) mg/dL Creatinine 0.65 L (0.66-1.25) mg/dL Estimated GFR > 60.0 (>60) mL/min BUN/Creatinine Ratio 23.1 H (6-22) Glucose 100 (70-100) mg/dL Calcium 9.7 (8.4-10.2) mg/dL Magnesium (1.6-2.3) mg/dL Total Bilirubin 0.6 (0.2-1.3) mg/dL AST 46 (17-59) IU/L ALT 33 (<50) IU/L Alkaline Phosphatase 71 (38-126) U/L Total Protein 8.2 (6.3-8.2) g/dL Albumin 5.0 (3.5-5.0) g/dL Globulin 3.2 (1.7-4.1) g/dL Albumin/Globulin Ratio 1.6 (1.0-2.8) Ethyl Alcohol ( - 10) mg/dL SARS-CoV-2 (PCR) (Negative) Blood Type O Positive Antibody Screen Negative 04/24/21 04/24/21 04/24/21 Range/Units 17:46 17:46 18:35 WBC (4.5-11.0) X10^3/uL RBC (4.5-5.9) X10^6/uL Hgb (13.5-17.5) g/dL Hct (41-53) % MCV (80-100) fL MCH (26-34) PG MCHC (30-36) % RDW (11.6-14.8) % Plt Count (150-400) X10^3/uL Neut % (Auto) (50-75) % Lymph % (Auto) (25-40) % [place] % (Auto) (3-14) % Eos % (Auto) (2-4) % Baso % (Auto) (0-2) % Neut # (Auto) (4835-7006) /uL Lymph # (Auto) (7918-3922) /uL [place] # (Auto) (0-900) /uL Eos # (Auto) (0-450) /uL Baso # (Auto) (0-100) /uL Sodium (137-145) mmol/L Potassium (3.4-5.1) mmol/L Chloride (98-107) mmol/L Carbon Dioxide (22-32) mmol/L BUN (9-20) mg/dL Creatinine (0.66-1.25) mg/dL Estimated GFR (>60) mL/min BUN/Creatinine Ratio (6-22) Glucose (70-100) mg/dL Calcium (8.4-10.2) mg/dL Magnesium 1.6 (1.6-2.3) mg/dL Total Bilirubin (0.2-1.3) mg/dL AST (17-59) IU/L ALT (<50) IU/L Alkaline Phosphatase (38-126) U/L Total Protein (6.3-8.2) g/dL Albumin (3.5-5.0) g/dL Globulin (1.7-4.1) g/dL Albumin/Globulin Ratio (1.0-2.8) Ethyl Alcohol 11 H ( - 10) mg/dL SARS-CoV-2 (PCR) Negative (Negative) Blood Type Antibody Screen Discharge Plan Departure Patient Disposition: Admitted As Inpatient Clinical Impression: Upper gastrointestinal hemorrhage Alcohol withdrawal Qualifiers: Complication of substance-induced condition: uncomplicated Qualified Code(s): F10.230 - Alcohol dependence with withdrawal, uncomplicated Admit Date/Time: 04/24/21 18:37 Admit Provider: Genesis Milian <Roberta Bedolla MD - Last Filed: 04/27/21 03:17> Cosign ED Attending Cosignature Attestation: I was immediately available in the depart ment for consultation throughout this patient's visit. I agree with documentation as above. Roberta Bedolla MD
[2021-04-24] MEDS: LORazepam 2 MG/ML INJ IV ×2 (17:53→21:17)
[2021-04-24] MEDS: SODIUM CHLORIDE 0.9% 1,000 ML 1000 ML IV (17:53)
[2021-04-24] MEDS: PANTOPRAZOLE 40 MG VIAL 80 MG IV (17:54)
[2021-04-24 18:09] LABS: Alanine Aminotransferase 33 IU/L (<50); Albumin Globulin Ratio 1.6 (1.0-2.8); Alkaline Phosphatase 71 U/L (38-126); Aspartate Aminotransferase 46 IU/L (17-59); BUN Creatinine Ratio 23.1 (6-22); Bilirubin Total 0.6 mg/dL (0.2-1.3); Blood Urea Nitrogen 15 mg/dL (9-20); Calcium 9.7 mg/dL (8.4-10.2); Carbon Dioxide 23 mmol/L (22-32); Chloride 101 mmol/L (98-107); Estimated Glomerular Filt Rate > 60.0 mL/min (>60); Globulin 3.2 g/dL (1.7-4.1); Glucose 100 mg/dL (70-100); HEMOLYSIS 17 (0-50); Potassium 3.9 mmol/L (3.4-5.1); Sodium 136 mmol/L (137-145); Total Protein 8.2 g/dL (6.3-8.2)
[2021-04-24 18:10] LABS: Ethanol (ETOH) 11 mg/dL
[2021-04-24 18:23] LABS: Add Manual Diff / Slide Review NO; Basophils Absolute Auto 0 /uL (0-100); Basophils Percent Auto 0.4 % (0-2); Eosinophils Absolute Auto 100 /uL (0-450); Eosinophils Percent Auto 0.9 % (2-4); Hematocrit 43.3 % (41-53); Lymphocytes Absolute Auto 1800 /uL (1100-4500); Lymphocytes Percent Auto 19.4 % (25-40); Mean Corpuscular HGB Conc 34.7 % (30-36); Mean Corpuscular Volume 95.2 fL (80-100); Monocytes Absolute Auto 700 /uL (0-900); Monocytes Percent Auto 7.7 % (3-14); Neutrophils Absolute Auto 6700 /uL (1500-7000); Neutrophils Percent Auto 71.6 % (50-75); Platelet Count 336 X10^3/uL (150-400); Red Blood Cell Count 4.55 X10^6/uL (4.5-5.9); Red Cell Distribution Width 12.7 % (11.6-14.8); White Blood Cell Count 9.3 X10^3/uL (4.5-11.0)
[2021-04-24 19:44] LABS: Magnesium 1.6 mg/dL (1.6-2.3)
[2021-04-24 19:48] LABS: COVID19 - ADMIT (NP swab/PCR) Negative (Negative)
[2021-04-24] MEDS: LACTATED RINGERS 1,000 ML 100 ML IV (20:12)
[2021-04-24] MEDS: LORazepam 2 MG/ML INJ 1 MG IV (20:53)
[2021-04-24] MEDS: ONDANSETRON 4 MG/2 ML INJ IV (21:24)
--- NOTE | 2021-04-24 21:42 | PC.ADMIT ---
[id number] [address] [facility] Admission Note: Patient arrived to floor at 19:10 from ER via wheelchair. Patient shown how to use call light and brakes on bed locked. Seizure precautions in place. CIWA 7. Patient refused 2nd IV, HUMBERTO Figueroa notified. The patient,Rahat Driscoll,25 y/o, was given written information regarding hospital policies, unit procedures and contact persons. Patient's smoking status: Current every day smoker. Vital Signs - 8 hr 04/24/21 17:20 04/24/21 17:39 04/24/21 18:00 Temperature 98 F Pulse Rate 101 H 109 H 99 H Respiratory Rate 26 H 23 21 Blood Pressure 145/97 H Pulse Oximetry 98 97 98 04/24/21 18:30 04/24/21 18:58 04/24/21 19:10 Temperature 98.4 F Pulse Rate 94 H 104 H 93 H Respiratory Rate 16 21 19 Blood Pressure 122/78 136/79 Pulse Oximetry 98 98 98
--- NOTE | 2021-04-24 22:04 | PC.NURSE ---
HUMBERTO sees pt this evening and reports feels as though pt's CIWA is 8 d/t visible marked tremors. Verbal order to give 1 mg iv lorazepam now as part of CIWA in addition to separate now ativan order previously given. This was done. While HUMBERTO Figueroa is in to see patient, pt becomes tearful and admittedly anxious. States nauseated and sits up in bed with emesis bag. Pt was reassured by HUMBERTO Figueroa and calms following ativan and zofran administration. Clear liquids po permitted per HUMBERTO and pt was given ice chips and tolerates these well without nausea or vomiting. Provided with ice water and jello and continues to deny nausea. Tremulousness and tearfulness much less. Pt cooperative with care, but highly anxious.
--- NOTE | 2021-04-24 22:37 | P.HP_ITS ---
History of Present Illness History of Present Illness Date Patient Seen: 04/24/21 Time Patient Seen: 19:31 Chief complaint: THROWING UP RED BLOOD/BLACK BLACK UROGEN Narrative: Rahat Driscoll is a 25-year-old male smoker and heavy daily drinker presented to ED with a chief complaint of episodes of vomiting 6-8 times today coffee-ground emesis and multiple episodes of dark and tarry stools. He was seen and evaluated yesterday in the ED after having 1-2 episodes of bright red vomit. He was observed for nearly 5 hours, vital signs were stable H&H was stable he was given a PPI and sent home with return precautions. Over the past 24 hours he has developed the symptoms stated above in addition to feeling weak, shaky, agitated and irritable. He has not had a drink and quite a few hours and generally feels unwell. He is a heavy drinker and has gone through withdrawals before but has never had seizures. Patient reports he drinks approximately 616 oz beers 334 oz hard liquor drinks and 4-5 shots per day. He states that he has been drinking for approximately 4 years and has increased his drinking severely and the last 3 or 4 months, most recently his stress is been increased due to losing his job and his car breaking down. Upon admit patient denies chest pain, shortness of breath, he has not had any further diarrhea or vomiting while in the facility. Patient complains of continued nausea, chills, and diaphoresis. He denies abdominal pain, recent injury, illness or trauma. He denies any history of cirrhosis, upper/lower GI bleed or known varices. Patient denies any other substances other than alcohol, but is a pack-a-day smoker. Patient has a history of depression with anxiety and takes paroxetine 30 mg q.day and denies any other medical history. Patient's vital signs are stable upon admit BP 122/78, mildly tachycardic HR 104, RR 21, O2 saturation 98% on room air. During admit exam patient is diaphoretic, shaking, and becoming increasingly anxious. Patient verbalized that he wants to stop drinking, patient stated ?if I can live long enough to go home and see my CAT I'll never drink again. Patient's CBC is all within normal limits patient's chemistries and liver function are predominantly normal creatinine is mildly decreased at 0.65, patient has an EtOH of 11. Patient to be admitted for alcohol withdrawal, possible upper GI bleed. Dr. Juarez was notified in the ED and will come in for consult if patient develops symptoms of a GI bleed. Patient History Medical History (Updated 04/25/21 @ 04:03 by CASEY Lester-PETEY) Alcohol abuse Anxiety Depression with anxiety History of fracture of leg Surgical History (Updated 04/25/21 @ 04:03 by CASEY Lester-PETEY) History of surgery on extremity Family & Social History Family History (Updated 04/25/21 @ 04:04 by CASEY Lester-PETEY) Other Adopted Social History: household members friend(s) Prior Living Arrangements House Safety & Behavioral: Feels Safe in Current Yes Environment Been Physically Hurt or No Threatened By a Person Suicidal Ideation Description None Suicide Plan Description No Plan Tobacco & Substance use: Tobacco type cigarettes Smoking Status Current every day smoker Smoking packs per day 1 alcohol intake current alcohol intake frequency 3 or more drinks per day Substance Use Type marijuana Meds Home Medications and Allergies Home Medications Medication Instructions Recorded Confirmed Type paroxetine HCl 30 mg tablet 30 mg PO DAILY 04/24/21 04/24/21 History Allergies Allergy/AdvReac Type Severity Reaction Status Date / Time morphine Allergy Verified 09/04/20 01:51 Review of Systems Review of Systems Narrative: All 12 point systems reviewed with the patient and are negative except otherwise documented. Exam Vital Signs (past 8 hours): - 04/24/21 17:20 04/24/21 17:39 04/24/21 18:00 Temperature 98 F Pulse Rate 101 H 109 H 99 H Pulse Rate [Orthostatic Lying] Pulse Rate [Orthostatic Sitting] Pulse Rate [Orthostatic Standing] Respiratory Rate 26 H 23 21 Blood Pressure 145/97 H Blood Pressure [Orthostatic Lying] Blood Pressure [Orthostatic Sitting] Blood Pressure [Orthostatic Standing] Pulse Oximetry 98 97 98 04/24/21 18:30 04/24/21 18:58 04/24/21 19:10 Temperature 98.4 F Pulse Rate 94 H 104 H 93 H Pulse Rate [Orthostatic Lying] Pulse Rate [Orthostatic Sitting] Pulse Rate [Orthostatic Standing] Respiratory Rate 16 21 19 Blood Pressure 122/78 136/79 Blood Pressure [Orthostatic Lying] Blood Pressure [Orthostatic Sitting] Blood Pressure [Orthostatic Standing] Pulse Oximetry 98 98 98 04/24/21 19:22 04/24/21 21:43 04/24/21 21:44 Temperature Pulse Rate 77 77 Pulse Rate [Orthostatic Lying] Pulse Rate [Orthostatic Sitting] Pulse Rate [Orthostatic Standing] Respiratory Rate 16 16 Blood Pressure 130/83 130/83 Blood Pressure [Orthostatic Lying] Blood Pressure [Orthostatic Sitting] Blood Pressure [Orthostatic Standing] Pulse Oximetry 98 04/24/21 21:55 Temperature Pulse Rate 77 Pulse Rate [Orthostatic Lying] 77 Pulse Rate [Orthostatic Sitting] 83 Pulse Rate [Orthostatic Standing] 106 H Respiratory Rate 17 Blood Pressure 130/83 Blood Pressure [Orthostatic Lying] 130/83 Blood Pressure [Orthostatic Sitting] 121/75 Blood Pressure [Orthostatic Standing] 125/72 Pulse Oximetry 98 Oxygen Delivery Method Room Air Oxygen Flow Rate 0 Narrative Exam Narrative: General: Patient is a well-developed, well-nourished male in mild distress at this time. HEENT: Normocephalic, atraumatic, extraocular muscles intact, oral pharynx is clear and mucous membranes are moist. Neck is supple and symmetric, trachea is midline, no adenopathy, no thyroid enlargement, nontender, no masses palpated. Negative for JVD, slightly tachypneic Chest: Normal AP diameter and contour without kyphoscoliosis, no nasal flaring, retractions, or tachypneic labored Lungs: Auscultation of all lung salazar are clear without adventitious sounds, wheezes, rhonchi, or rales. Cardio: S1 & S2 with regular rate and rhythm without murmur, rubs, or gallops, no carotid bruit, no cardiac pulsations present. Abdomen: Soft nontender, negative for organomegaly, or masses. Bowel sounds are present in all 4 quadrants without guarding or rebound, no CVA tenderness. Musculoskeletal: Muscle strength and tone are equal within normal limits, no deformity, crepitus, effusions, cyanosis, clubbing or edema present. Full range of motion intact radial and pedal pulses are normal. Patient is shaking uncontrollably Skin: Warm flushed diaphoretic and intact without rashes, ulcerations or petechiae. Neuro: Alert and orientated x3, strength is +5/5 in all extremities, sensation to touch intact, no gross deficits noted of cranial nerves. Psych: Patient has a well-kept appearance, anxious but appropriate affect, mental status attitude thought context and judgment are appropriate for age. Objective Labs Result Diagrams: 04/24/21 17:46 04/24/21 17:46 Labs: Laboratory Results - last 24 hr 04/24/21 04/24/21 04/24/21 17:46 17:46 17:46 WBC 9.3 RBC 4.55 Hgb 15.0 Hct 43.3 MCV 95.2 MCH 33.0 MCHC 34.7 RDW 12.7 Plt Count 336 Neut % (Auto) 71.6 D Lymph % (Auto) 19.[address] % (Auto) 7.7 Eos % (Auto) 0.9 L Baso % (Auto) 0.4 Neut # (Auto) 6700 Lymph # (Auto) 1800 [place] # (Auto) 700 Eos # (Auto) 100 Baso # (Auto) 0 Sodium 136 L Potassium 3.9 Chloride 101 Carbon Dioxide 23 BUN 15 Creatinine 0.65 L Estimated GFR > 60.0 BUN/Creatinine Ratio 23.1 H Glucose 100 Calcium 9.7 Magnesium Total Bilirubin 0.6 AST 46 ALT 33 Alkaline Phosphatase 71 Total Protein 8.2 Albumin 5.0 Globulin 3.2 Albumin/Globulin Ratio 1.6 Ethyl Alcohol SARS-CoV-2 (PCR) Blood Type O Positive Antibody Screen Negative 04/24/21 04/24/21 04/24/21 17:46 17:46 18:35 WBC RBC Hgb Hct MCV MCH MCHC RDW Plt Count Neut % (Auto) Lymph % (Auto) [place] % (Auto) Eos % (Auto) Baso % (Auto) Neut # (Auto) Lymph # (Auto) [place] # (Auto) Eos # (Auto) Baso # (Auto) Sodium Potassium Chloride Carbon Dioxide BUN Creatinine Estimated GFR BUN/Creatinine Ratio Glucose Calcium Magnesium 1.6 Total Bilirubin AST ALT Alkaline Phosphatase Total Protein Albumin Globulin Albumin/Globulin Ratio Ethyl Alcohol 11 H SARS-CoV-2 (PCR) Negative Blood Type Antibody Screen Assessment & Plan Assessment & Plan narrative: Rahat Driscoll is a 25-year-old male smoker and heavy daily drinker who presented with a chief complaint of multiple vomiting episodes of coffee-ground emesis and multiple episodes of dark and tarry stools, in alcohol withdrawal. Patient was admitted for alcohol withdrawal and possible upper/lower GI bleed. 1. Alcohol withdrawal, acute, in the setting of alcohol abuse, with possible upper/lower GI bleed, acute, present on admission-stable -Patient was seen and evaluated in the ED yesterday after having 1-2 episodes of bright red vomit. He was observed for nearly 5 hours, vital signs were stable H&H was stable he was given a PPI and sent home with return precautions. -today patient has not vomited or had any rectal bleeding while in the facility, his CBC, CMP, LFt's are all WNL,EtOH 11, occult blood-negative. -Typed and crossed: O-positive -I have a low suspicion of GI bleed, more likely esophageal irritation and or acid reflux and that the patient's predominant issue is alcohol withdrawal. -patient to be monitored on tele medicine, vital signs q.4 hours, intake and output monitored Q shift, weight measure daily, diet: Low-sodium, patient on CIWA protocol-may consider Librium 75 mg q.6 if withdrawal symptoms worsen. -IV fluid normal saline 100 - A.m. labs H&H, BMP, Mag, phos-will continue to monitor electrolytes magnesium and phosphorus -Rule out upper GI &/or Lower GI Bleeding, duodenitis, esophageal varices, portal hypertensive gastropathy, angiodysplasia, gastric reflux, gastritis, peptic ulcer disease, aerophagia, Klaudia-Franklin tear, and or gastric cancer. -closely monitor airway, clinical status, vital signs, cardiac rhythm, urinary output, and NG output if in place. -patient education and encouraged alcohol cessation -recommend referral for outpatient follow-up for alcohol cessation -Dr. Juarez was consulted in the ED, Order consult if signs or symptoms of GI bleed present. 2. Malnourished as evidence by BMI of 21.5, acute on chronic, present on admission -consider evaluation by dietary with recommendations for oral nutrition, though poor nutrition is related to alcohol abuse. 3. Tobacco abuse, acute on chronic, present on admission -patient education provided and encouraged tobacco cessation Code status: Full code Surrogate decision maker: Jeff mohan ASHLEY PCR: Negative DVT/VTE prophylaxis: Medication contraindicated due to GI bleed risk, SCDs only Disposition: Observation admit expected length of stay less than 2 midnights. I have utilized all available immediate resources to obtain, update, or review the patient's current medications. I confirmed that the patient's advanced care plan is present, Code status is documented and/or surrogate decision maker is listed in the patient's medical record. Scores GCS Namita coma scale eye opening: Spontaneous Namita coma scale verbal response: Orientated Namita coma scale motor response: Obey commands [place] coma scale total score: 15
[2021-04-24] MEDS: PARoxetine 20 MG TABLET 30 MG PO (22:45)
[2021-04-24] MEDS: NICOTINE 21 MG PATCH TOP (22:45)
[2021-04-25] VITALS (15 sets, daily range): BP systolic 125–149; BP diastolic 58–103; PULSE 54–105; RESP 16–22; TEMP 36.4–37.2; O2SAT 98–100
[2021-04-25] MEDS: LORazepam 2 MG/ML INJ IV ×3 (05:09→19:07)
[2021-04-25 05:27] LABS: BUN Creatinine Ratio 16.5 (6-22); Blood Urea Nitrogen 13 mg/dL (9-20); Carbon Dioxide 28 mmol/L (22-32); Chloride 102 mmol/L (98-107); Estimated Glomerular Filt Rate > 60.0 mL/min (>60); Glucose 92 mg/dL (70-100); HEMOLYSIS < 15 (0-50); Magnesium 1.6 mg/dL (1.6-2.3); Phosphorous 3.3 mg/dL (2.5-4.5); Potassium 3.5 mmol/L (3.4-5.1); Sodium 137 mmol/L (137-145)
[2021-04-25 05:31] LABS: Hematocrit 38.7 % (41-53); Hemoglobin 13.2 g/dL (13.5-17.5)
[2021-04-25] MEDS: LACTATED RINGERS 1,000 ML 100 ML IV (06:29)
[2021-04-25] MEDS: PARoxetine 20 MG TABLET 30 MG PO (08:22)
[2021-04-25] MEDS: NICOTINE 21 MG PATCH TOP (08:23)
[2021-04-25] MEDS: THIAMINE 100 MG TABLET PO (10:32)
[2021-04-25] MEDS: FOLIC ACID 1 MG TABLET PO (10:32)
[2021-04-25] MEDS: MULTIVITAMIN 1 TABLET 1 TAB PO (10:32)
[2021-04-25] MEDS: PANTOPRAZOLE DR 40 MG TABLET PO (10:35)
[2021-04-25 15:10] LABS: Hematocrit 37.8 % (41-53)
--- NOTE | 2021-04-25 15:10 | PC.NURSE ---
Patient guiaced + for blood in his stool, black in color. and both aware of this.
--- NOTE | 2021-04-25 16:03 | P.PN_ITS ---
Subjective Subjective Interval history: 25 y/o male admitted for acute alcohol withdrawal with delerium tremens. Patient presented with hemetemsis and dark stools. He currently has had no further nausea or emesis. He is passing dark stool. Patient had hallucinations last night, some anxiety, sweating, tremor , and headache today. Most recent CIWA score was 8 Exam Vital Signs (past 8 hours): - 04/25/21 08:20 04/25/21 11:15 04/25/21 15:45 Temperature 99.0 F 98.2 F Pulse Rate 68 67 Pulse Rate [Orthostatic Lying] 67 67 Pulse Rate [Orthostatic Sitting] 61 58 L Pulse Rate [Orthostatic Standing] 63 73 Respiratory Rate 22 17 Blood Pressure 146/90 H 133/76 Blood Pressure [Orthostatic Lying] 136/78 133/76 Blood Pressure [Orthostatic Sitting] 143/103 H 136/80 Blood Pressure [Orthostatic Standing] 143/99 H 143/86 H Pulse Oximetry 98 98 04/25/21 15:54 Temperature Pulse Rate 71 Pulse Rate [Orthostatic Lying] Pulse Rate [Orthostatic Sitting] Pulse Rate [Orthostatic Standing] Respiratory Rate 20 Blood Pressure 143/71 H Blood Pressure [Orthostatic Lying] Blood Pressure [Orthostatic Sitting] Blood Pressure [Orthostatic Standing] Pulse Oximetry Oxygen Delivery Method Room Air Oxygen Flow Rate 0 Narrative Exam Narrative: ill appearing male lying in bed Resp Other: Lungs: clear to auscultation Cardio Other: RRR nl S1 S2 GI Other: Abd: soft/ non tender/ non distended Extrem Other: no edema Objective Labs Result Diagrams: 04/25/21 15:05 04/25/21 05:00 Labs: Laboratory Results - last 24 hr 04/24/21 04/24/21 04/24/21 17:46 17:46 17:46 WBC 9.3 RBC 4.55 Hgb 15.0 Hct 43.3 MCV 95.2 MCH 33.0 MCHC 34.7 RDW 12.7 Plt Count 336 Neut % (Auto) 71.6 D Lymph % (Auto) 19.4 L D [place] % (Auto) 7.7 Eos % (Auto) 0.9 L Baso % (Auto) 0.4 Neut # (Auto) 6700 Lymph # (Auto) 1800 [place] # (Auto) 700 Eos # (Auto) 100 Baso # (Auto) 0 Sodium 136 L Potassium 3.9 Chloride 101 Carbon Dioxide 23 BUN 15 Creatinine 0.65 L Estimated GFR > 60.0 BUN/Creatinine Ratio 23.1 H Glucose 100 Calcium 9.7 Phosphorus Magnesium Total Bilirubin 0.6 AST 46 ALT 33 Alkaline Phosphatase 71 Total Protein 8.2 Albumin 5.0 Globulin 3.2 Albumin/Globulin Ratio 1.6 Ethyl Alcohol SARS-CoV-2 (PCR) Blood Type O Positive Antibody Screen Negative 04/24/21 04/24/21 04/24/21 17:46 17:46 18:35 WBC RBC Hgb Hct MCV MCH MCHC RDW Plt Count Neut % (Auto) Lymph % (Auto) [place] % (Auto) Eos % (Auto) Baso % (Auto) Neut # (Auto) Lymph # (Auto) [place] # (Auto) Eos # (Auto) Baso # (Auto) Sodium Potassium Chloride Carbon Dioxide BUN Creatinine Estimated GFR BUN/Creatinine Ratio Glucose Calcium Phosphorus Magnesium 1.6 Total Bilirubin AST ALT Alkaline Phosphatase Total Protein Albumin Globulin Albumin/Globulin Ratio Ethyl Alcohol 11 H SARS-CoV-2 (PCR) Negative Blood Type Antibody Screen 04/25/21 04/25/21 04/25/21 05:00 05:00 15:05 WBC RBC Hgb 13.2 L 13.0 L Hct 38.7 L 37.8 L MCV MCH MCHC RDW Plt Count Neut % (Auto) Lymph % (Auto) [place] % (Auto) Eos % (Auto) Baso % (Auto) Neut # (Auto) Lymph # (Auto) [place] # (Auto) Eos # (Auto) Baso # (Auto) Sodium 137 Potassium 3.5 Chloride 102 Carbon Dioxide 28 BUN 13 Creatinine 0.79 Estimated GFR > 60.0 BUN/Creatinine Ratio 16.5 Glucose 92 Calcium 9.0 Phosphorus 3.3 Magnesium 1.6 Total Bilirubin AST ALT Alkaline Phosphatase Total Protein Albumin Globulin Albumin/Globulin Ratio Ethyl Alcohol SARS-CoV-2 (PCR) Blood Type Antibody Screen [facility] Medical History (Updated 04/25/21 @ 04:03 by SALINA Lester) Alcohol abuse Anxiety Depression with anxiety History of fracture of leg Surgical History (Updated 04/25/21 @ 04:03 by SALINA Lester) History of surgery on extremity Family History (Updated 04/25/21 @ 04:04 by SALINA Lester) Other Adopted Social History household members: friend(s) Smoking Status: Current every day smoker alcohol intake: current Assessment & Plan Assessment & Plan narrative: Alcohol withdrawal, acute, in the setting of alcohol abuse, with possible upper/lower GI bleed, acute, present on admission- stable -Patient was seen and evaluated in the ED yesterday after having 1-2 episodes of bright red vomit. He was observed for nearly 5 hours, vital signs were stable H&H was stable he was given a PPI and sent home with return precautions. -today patient has not vomited or had any rectal bleeding while in the facility, his CBC, CMP, LFt's are all WNL,EtOH 11, occult blood-negative. -Typed and crossed: O-positive -I have a low suspicion of GI bleed, more likely esophageal irritation and or acid reflux and that the patient's predominant issue is alcohol withdrawal. -patient to be monitored on tele medicine, vital signs q.4 hours, intake and output monitored Q shift, weight measure daily, diet: Low-sodium, patient on CIWA protocol-may consider Librium 75 mg q.6 if withdrawal symptoms worsen. -heplock IVF -Continue clear liquid diet -follow H/H PPI, No indication for EGD at this time Continue CIWA protocol - A.m. labs H&H, BMP, Mag, phos-will continue to monitor electrolytes magnesium and phosphorus -Rule out upper GI &/or Lower GI Bleeding, duodenitis, esophageal varices, portal hypertensive gastropathy, angiodysplasia, gastric reflux, gastritis, peptic ulcer disease, aerophagia, Klaudia-Franklin tear, and or gastric cancer. -closely monitor airway, clinical status, vital signs, cardiac rhythm, urinary output, and NG output if in place. -patient education and encouraged alcohol cessation -recommend referral for outpatient follow-up for alcohol cessation -Dr. Juarez was consulted in the ED, Order consult if signs or symptoms of GI bleed present. 2. Malnourished as evidence by BMI of 21.5, acute on chronic, present on admission -consider evaluation by dietary with recommendations for oral nutrition, though poor nutrition is related to alcohol abuse. 3. Tobacco abuse, acute on chronic, present on admission -patient education provided and encouraged tobacco cessation I have utilized all available resources to verify, update, and review current medications
--- NOTE | 2021-04-25 16:20 | CM.DANOTE ---
DCP/Assessment: Reviewed chart. Patient is a 25yr old male admitted to [facility] with possible GI bleed and ETOH withdrawal. Patient reports that he does not have PCP or health insurance. Met with patient today explained ORGANIZATIONAL EFFECTIVENESS CONSULTANT role. Patient reports that he drinks alcohol daily. Patient reports 6 pack of beer and several shots per day? Length of use unknown? Patient reports that he is employed and lives with roommates in [place]. Patient has cat at home which he is very attached to. Patient denies any previous treatment for ETOH abuse. Patient has family in state but reports that he only communicates with his brother/Jeff. Patient sleepy at time of visit therefore, ORGANIZATIONAL EFFECTIVENESS CONSULTANT to f/u in AM on 04-26-21. Patient reports interest in detoxing and treatment. ORGANIZATIONAL EFFECTIVENESS CONSULTANT provided patient with name/number of [facility] for telephone assessment, encouraged patient to complete today if possible. Patient agreeable. Patient currently denies any suicidal or homicidal ideation and denies mental health history. ORGANIZATIONAL EFFECTIVENESS CONSULTANT to continue to follow closely. Surgery consult a possibility during hospitalization for GI bleed. P: Pending. FATEMEH William Discharge Planning/Care Management CM Discharge Assessment Start: 04/25/21 16:16 Freq: Status: Active Protocol: Document 04/25/21 16:16 GEORGIE (Rec: 04/25/21 16:20 GEORGIE [id number]) Discharge Planning Assessment Assigned Towel Inspector FATEMEH William Contact Information Jeff Driscoll (brother) ph# Advance Directives? No Advance Directives on File No History Provided By Patient,Medical Record Prior Living Arrangements House Household Members friend(s) Independent with ADL's Yes Is patient alert and oriented? Yes Caregiver for Another No Barriers to Discharge No Discharge Plan Drug Rehabilitation Transportation Arrangement TBD by final d/c plan. Referrals Initiated Other Additional Comment Pateint provided with name/ number of [facility] for detox from ETOH when medically stable. Whiteboard Updated in Patient Room with Yes name and ext. # of Towel Inspector Review Status In Process Next Review Type Continued Stay Review
[2021-04-25] MEDS: ACETAMINOPHEN 325 MG TABLET 650 MG PO (18:50)
[2021-04-25] MEDS: SODIUM CHLORIDE 0.9% FLUSH 10 ML IV (19:07)
--- NOTE | 2021-04-25 19:50 | PC.NURSE ---
Pt slept much of shift in bed positioning and repositioning self independently and awakens spontaneously. Slept through dinner hour and warm broth and juice were provided when pt awake. CIWA 10 and pt was given 1 mg iv ativan to manage symptoms of alcohol withdrawal. Pt does report feeling better overall than upon admission last evening. Tylenol to manage c/o abdominal pain 12/05. No stools or emesis this shift. Refuses scd's. Seizure pads in place with suction set up in room.
[2021-04-26] VITALS: O2SAT 100
[2021-04-26 03:59] VITALS: BP 129/73; BP 137/77; BP 138/78; PULSE 54; PULSE 55; PULSE 58
[2021-04-26 04:00] VITALS: BP 129/73; PULSE 54; RESP 18; TEMP 36.5; O2SAT 100
[2021-04-26 05:16] LABS: Add Manual Diff / Slide Review NO; Basophils Absolute Auto 0 /uL (0-100); Basophils Percent Auto 1.1 % (0-2); Eosinophils Absolute Auto 200 /uL (0-450); Eosinophils Percent Auto 6.7 % (2-4); Hematocrit 38.1 % (41-53); Hemoglobin 13.1 g/dL (13.5-17.5); Lymphocytes Absolute Auto 1200 /uL (1100-4500); Lymphocytes Percent Auto 32.6 % (25-40); Mean Corpuscular HGB Conc 34.4 % (30-36); Mean Corpuscular Hemoglobin 32.6 PG (26-34); Mean Corpuscular Volume 94.6 fL (80-100); Monocytes Absolute Auto 400 /uL (0-900); Monocytes Percent Auto 9.6 % (3-14); Neutrophils Absolute Auto 1800 /uL (1500-7000); Platelet Count 239 X10^3/uL (150-400); Red Blood Cell Count 4.03 X10^6/uL (4.5-5.9); Red Cell Distribution Width 12.2 % (11.6-14.8); White Blood Cell Count 3.7 X10^3/uL (4.5-11.0)
[2021-04-26 05:26] LABS: Alanine Aminotransferase 26 IU/L (<50); Albumin 4.4 g/dL (3.5-5.0); Albumin Globulin Ratio 1.6 (1.0-2.8); Alkaline Phosphatase 67 U/L (38-126); Aspartate Aminotransferase 39 IU/L (17-59); BUN Creatinine Ratio 11.3 (6-22); Bilirubin Total 0.8 mg/dL (0.2-1.3); Blood Urea Nitrogen 8 mg/dL (9-20); Calcium 9.5 mg/dL (8.4-10.2); Carbon Dioxide 25 mmol/L (22-32); Chloride 104 mmol/L (98-107); Estimated Glomerular Filt Rate > 60.0 mL/min (>60); Globulin 2.8 g/dL (1.7-4.1); Glucose 94 mg/dL (70-100); HEMOLYSIS < 15 (0-50); Potassium 4.1 mmol/L (3.4-5.1); Sodium 135 mmol/L (137-145); Total Protein 7.2 g/dL (6.3-8.2)
[2021-04-26] MEDS: PANTOPRAZOLE DR 40 MG TABLET PO (06:33)
[2021-04-26 08:00] VITALS: BP 129/76; PULSE 70; RESP 18; TEMP 36.6; O2SAT 97; O2SAT 98
--- NOTE | 2021-04-26 08:07 | P.DS_ITS ---
History of Present Illness History of Present Illness Chief complaint: THROWING UP RED BLOOD/BLACK BLACK UROGEN Narrative: Rahat Driscoll is a 25-year-old male smoker and heavy daily drinker presented to ED with a chief complaint of episodes of vomiting 6-8 times today coffee-ground emesis and multiple episodes of dark and tarry stools. He was seen and evaluated yesterday in the ED after having 1-2 episodes of bright red vomit. He was observed for nearly 5 hours, vital signs were stable H&H was stable he was given a PPI and sent home with return precautions. Over the past 24 hours he has developed the symptoms stated above in addition to feeling weak, shaky, agitated and irritable. He has not had a drink and quite a few hours and generally feels unwell. He is a heavy drinker and has gone through withdrawals before but has never had seizures. Patient reports he drinks approximately 616 oz beers 334 oz hard liquor drinks and 4-5 shots per day. He states that he has been drinking for approximately 4 years and has increased his drinking severely and the last 3 or 4 months, most recently his stress is been increased due to losing his job and his car breaking down. Upon admit patient denies chest pain, shortness of breath, he has not had any further diarrhea or vomiting while in the facility. Patient complains of continued nausea, chills, and diaphoresis. He denies abdominal pain, recent injury, illness or trauma. He denies any history of cirrhosis, upper/lower GI bleed or known varices. Patient denies any other substances other than alcohol, but is a pack-a-day smoker. Patient has a history of depression with anxiety and takes paroxetine 30 mg q.day and denies any other medical history. Patient's vital signs are stable upon admit BP 122/78, mildly tachycardic HR 104, RR 21, O2 saturation 98% on room air. During admit exam patient is diaphoretic, shaking, and becoming increasingly anxious. Patient verbalized that he wants to stop drinking, patient stated ?if I can live long enough to go home and see my CAT I'll never drink again. Patient's CBC is all within normal limits patient's chemistries and liver function are predominantly normal creatinine is mildly decreased at 0.65, patient has an EtOH of 11. Patient to be admitted for alcohol withdrawal, possible upper GI bleed. Dr. Juarez was notified in the ED and will come in for consult if patient develops symptoms of a GI bleed. Discharge Providers Provider Date of admission: 04/24/21 18:37 Discharge Date: 04/26/21 Discharge provider: Padmini Escobar MD Summary Hospital Course Discharge Diagnosis: 1. Alcohol withdrawal, with Delerium Tremens, present on admission/Alcohol dependence 2. Nausea/Vomiting 3. Probable Gastritis 4. Nicotine dependence 5. Depression Hospital Course: Patient presented to the hospital with nausea/vomiting/ alcohol withdrawal. He had serial H/H obtained and had no evidence of blood loss. Patient was placed on clear liquids, IV hydration , PPI. He had no further nausea or emesis. He did pass some black stool. Patient had some hallucinations, tremors, headache, and irritability. He was treated with ativan and had his symptoms improved. His diet was advanced, His CIWA score was zero and patient was deemed appropriate for discharge. on the day of discharge his H/ H was 13.1/38. Patient will be seen by Social Work to discuss outpatient treatment of his alcoholism. The patient is unvaccinated against Covid-19. He was offered to have his first shot here but he declined and said he would think about it. Patient was deemed appropriate for discharge home. Status at Discharge Cognitive/behavioral status at discharge: oriented Functional status at discharge: independent ambulation Overall status at discharge: patient is back to baseline Exam Vital Signs (past 8 hours): - 04/26/21 03:59 04/26/21 04:00 Temperature 97.7 F Pulse Rate 54 L Pulse Rate [Orthostatic Lying] 54 L Pulse Rate [Orthostatic Sitting] 55 L Pulse Rate [Orthostatic Standing] 58 L Respiratory Rate 18 Blood Pressure 129/73 Blood Pressure [Orthostatic Lying] 129/73 Blood Pressure [Orthostatic Sitting] 137/77 Blood Pressure [Orthostatic Standing] 138/78 Pulse Oximetry 100 Oxygen Delivery Method Room Air Oxygen Flow Rate 0 Narrative Exam Narrative: Pleasant young man in no acute distress Resp Other: Lungs: clear to auscultation Cardio Other: CV: RRR nl Sl S2 GI Other: Abd: soft/ non tender Extrem Other: no edema Objective Labs Result Diagrams: 04/26/21 04:55 04/26/21 04:55 Labs: Laboratory Results - last 24 hr 04/25/21 04/26/21 04/26/21 15:05 04:55 04:55 WBC 3.7 L D RBC 4.03 L Hgb 13.0 L 13.1 L Hct 37.8 L 38.1 L MCV 94.6 MCH 32.6 MCHC 34.4 RDW 12.2 Plt Count 239 Neut % (Auto) 50.0 D Lymph % (Auto) 32.6 [place] % (Auto) 9.6 Eos % (Auto) 6.7 H Baso % (Auto) 1.1 Neut # (Auto) 1800 Lymph # (Auto) 1200 [place] # (Auto) 400 Eos # (Auto) 200 Baso # (Auto) 0 Sodium 135 L Potassium 4.1 Chloride 104 Carbon Dioxide 25 BUN 8 L Creatinine 0.71 Estimated GFR > 60.0 BUN/Creatinine Ratio 11.3 Glucose 94 Calcium 9.5 Total Bilirubin 0.8 AST 39 ALT 26 Alkaline Phosphatase 67 Total Protein 7.2 Albumin 4.4 Globulin 2.8 Albumin/Globulin Ratio 1.6 PFSH Medical History (Updated 04/25/21 @ 04:03 by CASEY Lester-PETEY) Alcohol abuse Anxiety Depression with anxiety History of fracture of leg Surgical History (Updated 04/25/21 @ 04:03 by SALINA Lester) History of surgery on extremity Family History (Updated 04/25/21 @ 04:04 by SALINA Lester) Other Adopted Social History household members: friend(s) Smoking Status: Current every day smoker alcohol intake: current Discharge Assessment & Plan Assessment and Plan Assessment: 1. Alcohol Withdrawal with Delerium Tremens 2. Alcohol Dependence 3. Tobacco dependence 4. Depression 5. Probable gastritis Plan of Treatment: Protonix Continue paxil Outpatient Alcohol Treatment Counseled to discontinue smoking Discharge Plan Discharge Plan Patient Disposition: Home Discharge orders & Medications Prescriptions: New pantoprazole 40 mg Tablet,Delayed Release (Dr/Ec) 40 mg PO 0700 Qty: 30 RF: 0 Continued paroxetine HCl 30 mg Tablet 30 mg PO DAILY RF: 0 Follow up/Referrals: Sofia,STEVE Tierney [Non-Staff] - Discharge Health Status Multidrug resistant organism: No MDRO Diet/Activity/Treatments Diet: Diet as Tolerated
[2021-04-26] MEDS: PARoxetine 20 MG TABLET 30 MG PO (09:01)
[2021-04-26] MEDS: FOLIC ACID 1 MG TABLET PO (09:13)
[2021-04-26] MEDS: THIAMINE 100 MG TABLET PO (09:13)
[2021-04-26] MEDS: NICOTINE 21 MG PATCH TOP (09:13)
[2021-04-26] MEDS: MULTIVITAMIN 1 TABLET 1 TAB PO (09:13)
--- NOTE | 2021-04-26 09:54 | PC.NURSE ---
Discharge note: Pt being discharged home today. Information regarding rehab for alcohol abuse was noted on bedside table and pt states it was given to him by the Dr. Pt states that he plans to go home and pack up some clean clothes, then call the number provided to him to check himself in to rehab. IV discontinued and gauze with tape placed over site. Instructed pt on medication to continue. Printed out discharge instructions re: dealing with stress without alcohol use. Pt wheeled to car by Shaila WALTERS in wheelchair. Pt driving self. No sedating medications have been recently given.
--- NOTE | 2021-04-26 09:59 | PC.NURSE ---
Discharge note addendum: reviewed signs and symptoms of anemia with patient that would require him to come back to ER.
--- NOTE | 2021-04-26 14:33 | CM.DPC ---
DCP/continued: Received notification from Dr. Escobar that patient medically stable for discharge today. Met with patient to continue planning. Patient reports that he has not called [facility] for detox bed yet. Encouraged patient to call and secure bed if he was serious about recovery. Patient in agreement but reports that he plans to d/c home today and follow through as outpatient. P: Home today. Resources given for ETOH treatment. FATEMEH William
== END 2021-04-26 10:00 | disposition home or self-care (01) | DRG 897 ==
LOC: ED 17:42 → AC 18:39
PROVIDERS: Emergency Medicine; Internal Medicine; Nurse Practitioner Family; Admitting Provider Family Medicine; Emergency Provider Emergency Medicine; Referring Provider Emergency Medicine; Visit Provider Family Medicine
DX: F10.131 Alcohol abuse with withdrawal delirium (principal); K29.70 Gastritis, unspecified, without bleeding; F41.9 Anxiety disorder, unspecified; F32.9 Major depressive disorder, single episode, unspecified; F17.210 Nicotine dependence, cigarettes, uncomplicated; Z20.822 Contact with and (suspected) exposure to COVID-19
CPT/HCPCS: 36415; 80048; 80053; 80320; 83735; 84100; 85014; 85018; 85025; 86850; 86900; 86901; 87635; 93005; 93010; 96361; 96374; 96375; 99284; C9803; C9113; J2060; J2405

== ENCOUNTER 2021-07-26 23:51 | Emergency (ER) | payer OTHER, MEDICAID, SELFPAY ==
[2021-04-24 18:55] VITALS: BMI 19.9
[2021-07-26 23:59] VITALS: BP 135/65; PULSE 85; RESP 18; TEMP 36.7; O2SAT 98
--- NOTE | 2021-07-27 00:04 | DI.RAD.S_ITS ---
PROCEDURE: XR SHOULDER RT MIN 2V INDICATIONS: fall TECHNIQUE: 2 views of the shoulder were acquired. COMPARISON: None. FINDINGS: Bones: No fractures or dislocations. No suspicious bony lesions. Visualized ribs appear intact. Soft tissues: No suspicious soft tissue calcifications. IMPRESSION: No acute shoulder fracture or dislocation. Dictated by: Henok Krueger M.D. on 07/27/2021 at 0:20 Approved by: Henok Krueger M.D. on 07/27/2021 at 0:21
--- NOTE | 2021-07-27 04:12 | ED.WOUNDLAC ---
HPI - Wound/Laceration General Chief Complaint: Wound/Laceration Stated Complaint: head injury/last night-still bleeding Time Seen by Provider: 07/27/21 04:09 Source: patient Mode of arrival: Ambulatory History of Present Illness HPI narrative: Patient is a 26 no help no knuckle helical who presents after ground level fall last evening. He said he drank all bottle of Bacardi last night which is abnormal for him he passed out hit is head out woke up with a sore right shoulder with a cut on the back of his head. He has not had anything to drink for about 24 hours. He feels nauseous he has a mild headache he has not been vomiting. However his shoulder continues to hurt him. He states that he does drink beer about 6 tall boys daily. He denies any numbness tingling or weakness. Related Data Home Medications Medication Instructions Recorded Confirmed paroxetine HCl 30 mg tablet 30 mg PO DAILY 04/24/21 04/24/21 Previous Rx's Medication Instructions Recorded pantoprazole 40 mg tablet,delayed 40 mg PO 0700 #30 tab 04/26/21 release Allergies Allergy/AdvReac Type Severity Reaction Status Date / Time morphine Allergy Verified 09/04/20 01:51 Review of Systems Review of Systems Narrative: GENERAL: Denies chills, fatigue, malaise, fever, sweats, travel HEENT: Denies sinus pain, ear pain, sore throat, difficulty swallowing, neck pain RESPIRATORY: Denies dyspnea, cough, wheezing, hemoptysis, sputum. CARDIOVASCULAR: Denies chest pain, palpitations, orthopnea, edema GASTROINTESTINAL: Denies nausea, vomiting, abdominal pain, diarrhea, constipation, melena. : Denies dysuria, frequency, incontinence, hematuria, urinary retention, flank pain. MUSCULOSKELETAL: See HPI SKIN: No rash, no erythema, no pruritus NEUROLOGIC: See HPI PSYCHIATRIC: No concerning psychosocial issues. 12 point review of systems is negative except for those stated above and HPI Patient History Medical History Alcohol abuse Anxiety Depression with anxiety History of fracture of leg Surgical History History of surgery on extremity Family History Other Adopted Social History household members: friend(s) Smoking Status: Current every day smoker alcohol intake: current Smoking Status: Current every day smoker tobacco type: cigarettes alcohol intake frequency: 3 or more drinks per day Alcohol type: beer and hard liquor Substance Use Type: marijuana Exam Initial Vital Signs Initial Vital Signs: Vital Signs Temperature 98.0 F 07/26/21 23:59 Pulse Rate 85 07/26/21 23:59 Respiratory Rate 18 07/26/21 23:59 Blood Pressure 135/65 07/26/21 23:59 Pulse Oximetry 98 07/26/21 23:59 GENERAL: Alert well-appearing 26-year-old maleand in no acute distress. HEENT: Head atraumatic, posterior superficial laceration and no swelling no depressions appears that skin has closed without any issue. Pupils reactive, face symmetric. Neck is nontender CARDIOVASCULAR: Regular rate and rhythm without murmurs, rubs or gallops. RESPIRATORY: Breath sounds equal bilaterally, no wheezes rales or rhonchi. EXTREMITIES: Normal range of motion, no clubbing or edema. Neurovascularly intact. right shoulder tender glenohumeral joint no clavicle step-offs superficial abrasion noted scapula. NEUROLOGICAL: Alert and oriented x4.Normal gait and speech. Cranial nerves II through XII grossly intact. Good [id number]-[id number], good [id number], strength equal bilaterally, no dysarthria or aphasia, sensation in tact to soft touch bilaterally, no visual changes, no facial droop SKIN: Abrasion right scapula area, superficial laceration posterior scalp Course Orders Ordered: ED Orders 07/27/21 00:04 XR shoulder RT min 2V Stat 07/27/21 04:18 CT head/brain wo con Stat Discontinued Medications Ibuprofen (Ibuprofen 400 Mg Tablet) 800 mg PO NOW ONE Stop: 07/27/21 04:19 Last Admin: 07/27/21 04:29 Dose: 800 mg Documented by: Vital Signs Vital signs: Vital Signs - 8 hr 07/26/21 23:59 Temperature 98.0 F Pulse Rate 85 Respiratory Rate 18 Blood Pressure 135/65 Pulse Oximetry 98 MDM - Wound/Laceration Imaging Data Extremity x-ray #1: Radiologist's Impression: PROCEDURE:? XR SHOULDER RT MIN 2V ? INDICATIONS:? fall ? TECHNIQUE:? 2 views of the shoulder were acquired.? ? COMPARISON:? None. ? FINDINGS:? ? Bones:? No fractures or dislocations.? No suspicious bony lesions.? Visualized ribs appear intact.? ? Soft tissues:? No suspicious soft tissue calcifications.? ? IMPRESSION:? No acute shoulder fracture or dislocation.? ? ? Dictated by: Henok Krueger M.D. on 07/27/2021 at 0:20 ? ? Approved by: Henok Krueger M.D. on 07/27/2021 at 0:21 ? CT scan - head: Radiologist's Impression: Preliminary report no acute intracranial abnormality MDM Narrative Medical decision making narrative: At this time patient has no evidence of with draw. I did discuss with him to decrease slowly. He recognizes that this is a problem. He has no evidence of intracranial hemorrhage he. He is given Motrin and food in the emergency department. Overall feeling better. Discharge Plan Departure Patient Disposition: Home Clinical Impression: Sprain of right shoulder, Closed head injury Instructions: Alcohol Use Disorder Activity Restrictions/Additional Instructions: *You have been diagnosed with closed head injury, right shoulder sprain, alcohol you *What to do: At this time I recommending decreasing alcohol use slowly so you do not have withdrawal seizure. Increase right shoulder movement as tolerated. May need physical therapy please discuss with primary care. *Continue to take medications as directed Ibuprofen 600 mg every 6 hours if needed for [id number]-[id number] pain *Follow up with your primary care provider in 2-3 days *Return to ER if you should have increasing pain, persistent vomiting, seizure or any new, worsening or concerning symptoms Prescriptions: No Action paroxetine HCl 30 mg Tablet 30 mg PO DAILY 0RF pantoprazole 40 mg Tablet,Delayed Release (Dr/Ec) 40 mg PO 0700 Qty: 30 0RF
--- NOTE | 2021-07-27 04:18 | DI.CT.S_ITS ---
PROCEDURE: CT HEAD/BRAIN WO CON INDICATIONS: etoh, fall, nausa TECHNIQUE: Noncontrast 4.5 mm thick angled axial sections acquired from the foramen magnum to the vertex, with coronal and sagittal reformats. For radiation dose reduction, the following was used: automated exposure control, adjustment of mA and/or kV according to patient size. COMPARISON: None. FINDINGS: Image quality: Excellent. CSF spaces: Basal cisterns are patent. No extra-axial fluid collections. Ventricles are normal in size and shape. Brain: No midline shift. No intracranial masses or hemorrhage. Arvizu-white matter interface is normal. Skull and face: Calvarium and visualized facial bones are intact, without suspicious lesions. Sinuses: Visualized sinuses and mastoids are clear. IMPRESSION: No acute intracranial disease process. Dictated by: Emy Jauregui MD, PhD on 07/27/2021 at 8:01 Approved by: Emy Jauregui MD, PhD on 07/27/2021 at 8:03
[2021-07-27] MEDS: IBUPROFEN 400 MG TABLET 800 MG PO (04:29)
[2021-07-27 04:46] VITALS: BP 128/85; PULSE 68; RESP 16; O2SAT 99
== END 2021-07-27 04:47 | disposition home or self-care (01) ==
PROVIDERS: Emergency Provider Emergency Medicine
DX: S09.8XXA Other specified injuries of head, initial encounter (principal); S43.401A Unspecified sprain of right shoulder joint, initial encounter; R11.0 Nausea; W18.30XA Fall on same level, unspecified, initial encounter; Z72.89 Other problems related to lifestyle
CPT/HCPCS: 70450; 73030; 99284

== ENCOUNTER 2021-12-30 06:16 | Emergency (ER) | payer OTHER, MEDICAID, SELFPAY ==
[2021-04-24 18:55] VITALS: BMI 19.9
[2021-12-30] VITALS (9 sets, daily range): BP systolic 126–152; BP diastolic 75–102; PULSE 51–75; RESP 17–21; TEMP 36.4–36.8; O2SAT 96–100; BMI 20.5
--- NOTE | 2021-12-30 06:55 | DI.RAD.S_ITS ---
PROCEDURE: XR CHEST 1V INDICATIONS: etoh withdrawl. TECHNIQUE: One view of the chest was acquired. COMPARISON: None. FINDINGS: Surgical changes and devices: None. Lungs and pleura: Lungs are clear. No pleural effusions or pneumothorax. Mediastinum: Mediastinal contours appear normal. Heart size is normal. Bones and chest wall: No suspicious bony lesions. Overlying soft tissues appear unremarkable. IMPRESSION: No acute intracranial disease process. Dictated by: Emy Jauregui MD, PhD on 12/30/2021 at 7:07 Approved by: Emy Jauregui MD, PhD on 12/30/2021 at 7:07
[2021-12-30] MEDS: PHENobarbital 65 MG/ML VIAL 130 MG IV (07:05)
[2021-12-30 07:06] LABS: Prothrombin Time 11.6 SECONDS (10.1-12.7)
[2021-12-30 07:07] LABS: Add Manual Diff / Slide Review NO; Basophils Absolute Auto 0 /uL (0-100); Basophils Percent Auto 0.7 % (0-2); Eosinophils Absolute Auto 100 /uL (0-450); Eosinophils Percent Auto 1.9 % (2-4); Hemoglobin 14.6 g/dL (13.5-17.5); Lymphocytes Absolute Auto 2200 /uL (1100-4500); Lymphocytes Percent Auto 38.7 % (25-40); Mean Corpuscular HGB Conc 35.6 % (30-36); Mean Corpuscular Hemoglobin 32.6 PG (26-34); Mean Corpuscular Volume 91.4 fL (80-100); Monocytes Absolute Auto 500 /uL (0-900); Monocytes Percent Auto 8.3 % (3-14); Neutrophils Absolute Auto 2900 /uL (1500-7000); Neutrophils Percent Auto 50.4 % (50-75); Platelet Count 274 X10^3/uL (150-400); Red Blood Cell Count 4.49 X10^6/uL (4.5-5.9); Red Cell Distribution Width 12.5 % (11.6-14.8); White Blood Cell Count 5.8 X10^3/uL (4.5-11.0)
[2021-12-30 07:08] LABS: PTT Partial Thromboplastin Tim 28 SECONDS (26.4-36.2)
[2021-12-30 07:11] LABS: Alanine Aminotransferase 25 IU/L (<50); Albumin 5.1 g/dL (3.5-5.0); Albumin Globulin Ratio 1.5 (1.0-2.8); Alkaline Phosphatase 75 U/L (38-126); Aspartate Aminotransferase 42 IU/L (17-59); BUN Creatinine Ratio 12.6 (6-22); Bilirubin Total 1.2 mg/dL (0.2-1.3); Bilirubin Unconjugated 1.3 mg/dL (0.0-1.1); Blood Urea Nitrogen 11 mg/dL (9-20); Calcium 9.7 mg/dL (8.4-10.2); Carbon Dioxide 24 mmol/L (22-32); Chloride 102 mmol/L (98-107); Estimated Glomerular Filt Rate > 60 mL/min (>60); Ethanol (ETOH) < 10 mg/dL; Globulin 3.3 g/dL (1.7-4.1); Glucose 95 mg/dL (70-100); HEMOLYSIS < 15 (0-50); Lipase 71 U/L (23-300); Magnesium 1.6 mg/dL (1.6-2.3); Sodium 138 mmol/L (137-145); Total Protein 8.4 g/dL (6.3-8.2)
--- NOTE | 2021-12-30 08:12 | ED.ALCOHOL ---
HPI - Alcohol General Chief Complaint: Toxicology Problem Stated Complaint: spitting up blood, abd pain and back pain Time Seen by Provider: 12/30/21 06:38 Source: patient Mode of arrival: Ambulatory History of Present Illness HPI narrative: Patient is a 26-year-old male who is an alcoholic, he drinks at least a 12 pack a day some shots and more his last drink was yesterday morning. Presents today with shaking. Last night he says he coughed up blood. He is adamant that he did not vomit blood. He has only done once no further episodes. He was complaining of some abdominal discomfort as well he has not had any diarrhea. He was shaky and quite anxious when he came in and got phenobarbital which has to help. He is not nauseated or vomiting. His abdominal burning sensation he was experiencing has now improved. Related Data Home Medications Medication Instructions Recorded Confirmed paroxetine HCl 30 mg tablet 30 mg PO DAILY 04/24/21 04/24/21 Previous Rx's Medication Instructions Recorded pantoprazole 40 mg tablet,delayed 40 mg PO 0700 #30 tab 04/26/21 release chlordiazepoxide HCl 25 mg capsule 25 mg PO TID #12 cap 12/30/21 Allergies Allergy/AdvReac Type Severity Reaction Status Date / Time morphine Allergy Verified 09/04/20 01:51 Review of Systems Review of Systems Narrative: GENERAL: Denies chills, fatigue, malaise, fever, sweats, travel HEENT: Denies sinus pain, ear pain, sore throat, difficulty swallowing, neck pain RESPIRATORY: + hemoptysis Denies dyspnea, cough, wheezing,sputum. CARDIOVASCULAR: Denies chest pain, palpitations, orthopnea, edema GASTROINTESTINAL: She HPI : Denies dysuria, frequency, incontinence, hematuria, urinary retention, flank pain. MUSCULOSKELETAL: Denies weakness, joint pain, or bony pain SKIN: No rash, no erythema, no pruritus NEUROLOGIC: Denies weakness, dizziness, headache, numbness, change in speech, confusion PSYCHIATRIC: No concerning psychosocial issues. 12 point review of systems is negative except for those stated above and HPI Patient History Medical History Alcohol abuse Anxiety Depression with anxiety History of fracture of leg Surgical History History of surgery on extremity Family History Other Adopted Social History household members: friend(s) Smoking Status: Current every day smoker alcohol intake: current Smoking Status: Current every day smoker tobacco type: cigarettes alcohol intake frequency: 3 or more drinks per day Alcohol type: beer and hard liquor Substance Use Type: marijuana Exam Initial Vital Signs Initial Vital Signs: Vital Signs Temperature 98.2 F 12/30/21 06:33 Pulse Rate 75 12/30/21 06:33 Respiratory Rate 17 12/30/21 06:33 Blood Pressure 152/102 H 12/30/21 06:33 Pulse Oximetry 98 12/30/21 06:33 GENERAL: Young 26-year-old male anxious HEENT: Head atraumatic,EOMI, pupils reactive, face symmetric, moist mucous membranes CARDIOVASCULAR: Regular rate and rhythm without murmurs, rubs or gallops. RESPIRATORY: Breath sounds equal bilaterally, no wheezes rales or rhonchi. ABDOMEN: Soft, nontender. Normoactive bowel sounds all 4 quadrants. No guarding or rebound. EXTREMITIES: Normal range of motion, no clubbing or edema. Neurovascularly intact NEUROLOGICAL: Alert and oriented x4.Normal gait and speech. No tremors no asterixis SKIN: Warm, dry, no laceration, no petechiae, no rashes or lesions. Course Orders Ordered: Discontinued Medications Phenobarbital (Phenobarbital 65 Mg/Ml Vial) 130 mg IV NOW ONE Stop: 12/30/21 06:55 Last Admin: 12/30/21 07:05 Dose: 130 mg Documented by: ABBIE Vital Signs Vital signs: Vital Signs - 8 hr 12/30/21 06:33 12/30/21 06:55 12/30/21 07:00 Temperature 98.2 F Pulse Rate 75 64 55 L Respiratory Rate 17 Blood Pressure 152/102 H 151/87 H 132/84 Pulse Oximetry 98 100 99 12/30/21 07:30 12/30/21 08:00 Temperature Pulse Rate 52 L 51 L Respiratory Rate 21 20 Blood Pressure 134/95 H 129/89 Pulse Oximetry 98 98 MDM - Alcohol Lab Data Result diagrams: 12/30/21 06:50 12/30/21 06:50 Labs: Lab Results 12/30/21 12/30/21 12/30/21 Range/Units 06:50 06:50 06:50 WBC 5.8 (4.5-11.0) X10^3/uL RBC 4.49 L (4.5-5.9) X10^6/uL Hgb 14.6 (13.5-17.5) g/dL Hct 41.0 (41-53) % MCV 91.4 (80-100) fL MCH 32.6 (26-34) PG MCHC 35.6 (30-36) % RDW 12.5 (11.6-14.8) % Plt Count 274 (150-400) X10^3/uL Neut % (Auto) 50.4 (50-75) % Lymph % (Auto) 38.7 (25-40) % [place] % (Auto) 8.3 (3-14) % Eos % (Auto) 1.9 L (2-4) % Baso % (Auto) 0.7 (0-2) % Neut # (Auto) 2900 (5673-5786) /uL Lymph # (Auto) 2200 (0668-4374) /uL [place] # (Auto) 500 (0-900) /uL Eos # (Auto) 100 (0-450) /uL Baso # (Auto) 0 (0-100) /uL PT 11.6 (10.1-12.7) SECONDS INR 1.0 (0.9-1.3) APTT 28 (26.4-36.2) SECONDS Sodium 138 (137-145) mmol/L Potassium 3.0 L (3.4-5.1) mmol/L Chloride 102 (98-107) mmol/L Carbon Dioxide 24 (22-32) mmol/L BUN 11 (9-20) mg/dL Creatinine 0.87 (0.66-1.25) mg/dL Estimated GFR > 60 (>60) mL/min BUN/Creatinine Ratio 12.6 (6-22) Glucose 95 (70-100) mg/dL Calcium 9.7 (8.4-10.2) mg/dL Magnesium 1.6 (1.6-2.3) mg/dL Total Bilirubin 1.2 (0.2-1.3) mg/dL Conjugated Bilirubin 0.0 (0.0-0.3) md/dL Unconjugated Bilirubin 1.3 H (0.0-1.1) mg/dL AST 42 (17-59) IU/L ALT 25 (<50) IU/L Alkaline Phosphatase 75 (38-126) U/L Total Protein 8.4 H (6.3-8.2) g/dL Albumin 5.1 H (3.5-5.0) g/dL Globulin 3.3 (1.7-4.1) g/dL Albumin/Globulin Ratio 1.5 (1.0-2.8) Lipase 71 (23-300) U/L Ethyl Alcohol < 10 ( - 10) mg/dL Imaging Data Chest x-ray: Radiologist's Impressoin: ient: Rahat Driscoll MR#: [id number] : 1995 Acct:[id number] Age/Sex: 26 / M Date of Service: 12/30/21 Loc: ED Accession Number: [id number] ?? Procedure: XR chest 1V Ordering Provider: Nena Caldwell D.O. PROCEDURE:? XR CHEST 1V ? INDICATIONS:? etoh withdrawl. ? TECHNIQUE:? One view of the chest was acquired.? ? COMPARISON:? None. ? FINDINGS:? ? Surgical changes and devices:? None.? ? Lungs and pleura:? Lungs are clear.? No pleural effusions or pneumothorax.? ? Mediastinum:? Mediastinal contours appear normal.? Heart size is normal.? ? Bones and chest wall:? No suspicious bony lesions.? Overlying soft tissues appear unremarkable.? ? IMPRESSION:? No acute intracranial disease process. ? ? Dictated by: Emy Jauregui MD, PhD on 12/30/2021 at 7:07 ? CT scan - abdomen/pelvis: Radiologist's Impressoin: Rahat Driscoll MR#: [id number] : 1995 Acct:[id number] Age/Sex: 26 / M Date of Service: 12/30/21 Loc: ED Accession Number: [id number] ?? Procedure: CT abdomen pelvis w con Ordering Provider: Alisa Wright D.O. PROCEDURE:? CT ABDOMEN PELVIS W CON ? INDICATIONS:? Possible varices, epigastric pain vomiting blood ? TECHNIQUE:? After the administration of intravenous contrast, axial sections acquired from the lung bases to the pubic symphysis.? Coronal and sagittal reformats were performed.? For radiation dose reduction, the following was used:? automated exposure control, adjustment of mA and/or kV according to patient size.? ? COMPARISON:? None. ? FINDINGS:? Image quality:? Excellent.? ? Lung bases:? Unremarkable. Heart:? No significant findings. ? ABDOMEN: Liver:? There is mild nodularity of the hepatic contour.? No focal hepatic mass is present..? ? Gallbladder:? Unremarkable.? ? Biliary ducts:? Unremarkable.? ? Pancreas:? Unremarkable.? ? Spleen:? Unremarkable.? ? Adrenal Glands:? Unremarkable.? ? Kidneys and Ureters:? Unremarkable.? ? ? Stomach and Bowel:? Stomach, small bowel loops, and colon are unremarkable.? Normal appendix. Peritoneum:? No abnormal intraperitoneal fluid.? No free air.? ? Ventral Wall: ? No hernias.? Abdominal Nodes:? No retroperitoneal or mesenteric adenopathy by size criteria.? Vessels:? Aorta and inferior vena cava are normal in size.? There is a recanalized umbilical vein.? No evidence of periesophageal varices. ? PELVIS: Pelvic Organs:? Unremarkable.? ? Bladder:? Unremarkable.? ? Pelvic Nodes: No enlarged lymph nodes.? Miscellaneous: No hernias are seen. ? ? ? Bones:? Unremarkable.? IMPRESSION:? 1. Cirrhosis and portal hypertension.? No evidence of periesophageal varices. 2. Normal appendix.? ? ? Dictated by: Satinder Quinones M.D. on 12/30/2021 at 8:54 ? ? MDM Narrative Medical decision making narrative: Patient responded very well to phenobarbital. It sounds as though he actually did cough and not vomit. He is not having any rectal bleeding. He is very interested in stopping alcohol however he does not want to go to detox. He says he stopped previously at the next couple days are bad. He denies any previous alcohol withdrawal seizure although he and I did discuss that he is at high risk for alcohol withdrawal seizure along with from a read me us. He is offered to stay and talk with social Work and help find him detox however at this time he would like to go home. He has had no further hemoptysis episodes or hematemesis episodes. Unclear which this is. CT does not show any evidence of varices. Discharge Plan Departure Patient Disposition: Home Clinical Impression: Alcohol withdrawal Instructions: DI for Delirium Tremens, Drug and Alcohol Withdrawal Activity Restrictions/Additional Instructions: *You have been diagnosed with alcohol withdrawal *What to do: I strongly encourage you to go to detox for alcohol withdrawal. Risk of withdrawing at home includes seizures heart arrhythmia as which could lead to . PLEASE MONITOR FOR ANY FURTHER BLEEDING AND RETURN TO EMERGENCY DEPARTMENT IT OCCURS Do not drink with this medication *Continue to take medications as directed Chlordizepoxide 25 mg 3 times a day for 2 days, 25 mg 2 times a day for 2 days, 25 mg once a day for 2 days DO NOT DRINK WITH THIS MEDICATION (DO NOT DRIVE OPERATE HEAVY MACHINERY ON THIS MEDICATION *Follow up with your primary care provider in 2-3 days or call [phone] *Return to ER if you should have SEIZURE, CHEST PAIN PALPITATIONS SHAKING ANXIETY, RECTAL BLEEDING BLACK OR BRIGHT RED, VOMITING BRIGHT RED BLOOD OR COFFEE GROUND LIKE OR any new, worsening or concerning symptoms Prescriptions: New chlordiazepoxide HCl 25 mg capsule 25 mg PO TID Qty: 12 0RF Rx Instructions: 25 MG 3 TIMES A DAY FOR 2 DAYS 25 MG 2 TIMES A DAY FOR 2 DAYS 25 MG ONCE A DAY FOR 2 DAYS No Action paroxetine HCl 30 mg Tablet 30 mg PO DAILY 0RF pantoprazole 40 mg Tablet,Delayed Release (Dr/Ec) 40 mg PO 0700 Qty: 30 0RF Referrals: [facility] [Outside] [facility] [Outside] [facility] [Outside]
--- NOTE | 2021-12-30 08:37 | DI.CT.S_ITS ---
PROCEDURE: CT ABDOMEN PELVIS W CON INDICATIONS: Possible varices, epigastric pain vomiting blood TECHNIQUE: After the administration of intravenous contrast, axial sections acquired from the lung bases to the pubic symphysis. Coronal and sagittal reformats were performed. For radiation dose reduction, the following was used: automated exposure control, adjustment of mA and/or kV according to patient size. COMPARISON: None. FINDINGS: Image quality: Excellent. Lung bases: Unremarkable. Heart: No significant findings. ABDOMEN: Liver: There is mild nodularity of the hepatic contour. No focal hepatic mass is present.. Gallbladder: Unremarkable. Biliary ducts: Unremarkable. Pancreas: Unremarkable. Spleen: Unremarkable. Adrenal Glands: Unremarkable. Kidneys and Ureters: Unremarkable. Stomach and Bowel: Stomach, small bowel loops, and colon are unremarkable. Normal appendix. Peritoneum: No abnormal intraperitoneal fluid. No free air. Ventral Wall: No hernias. Abdominal Nodes: No retroperitoneal or mesenteric adenopathy by size criteria. Vessels: Aorta and inferior vena cava are normal in size. There is a recanalized umbilical vein. No evidence of periesophageal varices. PELVIS: Pelvic Organs: Unremarkable. Bladder: Unremarkable. Pelvic Nodes: No enlarged lymph nodes. Miscellaneous: No hernias are seen. Bones: Unremarkable. IMPRESSION: 1. Cirrhosis and portal hypertension. No evidence of periesophageal varices. 2. Normal appendix. Dictated by: Satinder Quinones M.D. on 12/30/2021 at 8:54 Approved by: Satinder Quinones M.D. on 12/30/2021 at 8:57
== END 2021-12-30 09:31 | disposition home or self-care (01) ==
PROVIDERS: Emergency Medicine; Emergency Provider Emergency Medicine
DX: F10.131 Alcohol abuse with withdrawal delirium (principal); R10.13 Epigastric pain
CPT/HCPCS: 36415; 71045; 74177; 80053; 80076; 80320; 83690; 83735; 85025; 85610; 85730; 96374; 99284; J2560